=== PATIENT | male | born 1975 | race American Indian/Alaskan Native ===

== ENCOUNTER 2021-03-12 16:43 | Inpatient (IN) | payer MEDICAID ==
--- NOTE | 2021-03-12 20:50 | Event Note ---
ED Screening Note Date of service: 03/12/21 Time: 20:48 ED Screening Note: 45-year-old male patient with history of blindness presents to the emergency with complaints of progressively worsening left foot pain/swelling/drainage for several months. Patient states the left foot began exhibiting a foul odor this week. His screedman brought him to the emergency department for further evaluation however the screedman is not currently present at the time of the medical screening exam. Tachycardic in triage. General: Awake, appropriately interactive, no acute distress. Neck: Supple. Full range of motion intact. Cardiovascular: Normal peripheral perfusion. Pulmonary: No respiratory distress. Patient is speaking normally without use of accessory muscles. Skin: Purulent drainage noted to the webbed spaces of the toes on the left foot. Patient is unable to move his toes; states this is consistent with his baseline, but he is unsure why. Sensation intact. Brisk capillary refill. Neurological: No facial asymmetry. Speech is clear. Follows commands. Patient is alert and oriented. Musculoskeletal: Moves all four extremities spontaneously with normal range of motion. Psych: Cooperative. Appropriate mood and affect. Initial labs and imaging ordered; decision to obtain further diagnostic work-up deferred to additional ED providers following complete history and comprehensive physical assessment. I have greeted and performed a focused rapid initial assessment of this patient. A comprehensive ED assessment and evaluation of the patient, analysis of all test results, and completion of the medical decision-making process will be conducted by additional ED providers. This initial assessment/diagnostic orders/clinical plan/treatment(s) is/are subject to change based on patients health status, clinical progression and re-assessment. Further treatment and workup at subsequent clinical provider's discretion. Patient/guardian urged not to elope from the ED as their condition may be serious if not clinically assessed and managed.
[2021-03-12 21:25] LABS: Albumin 4.1 g/dL (3.9-5); C-Reactive Protein 3.8 mg/dL (0.00-1.30); Calcium 9.3 mg/dL (8.4-10.2)
--- NOTE | 2021-03-12 21:31 | XRay Report ---
Left foot 3 views INDICATION: Osteomyelitis FINDINGS: Diffuse osteopenia seen throughout. MTP joints appear normal. Soft tissue swelling througho ut the foot. Degenerative changes of the midfoot. IMPRESSION: No bony destructive change however there is diffuse osteopenia and soft tissue swelling. If there is high clinical concern MRI is recommended. Signer Name: Baljinder Frances MD Signed: 03/12/2021 9:26 PM Workstation Name: [id number]
[2021-03-12 21:41] LABS: Basophils % (Auto) 0.5 % (0.0-1.8); Eosinophils % (Auto) 1.3 % (0.0-4.3); Hematocrit 39.7 % (35.5-45.6); Hemoglobin 13.1 gm/dl (11.8-15.2); Lymphocytes % (Auto) 39.5 % (13.4-35.0); Mean Corpuscular HGB Conc 33 % (32-34); Mean Corpuscular Volume 92 fl (84-94); Monocytes % (Auto) 12.1 % (0.0-7.3); Platelet Count 229 K/mm3 (140-440); Red Cell Distribution Width 16.8 % (13.2-15.2)
[2021-03-12 21:42] LABS: Eosinophils # (Auto) 0.1 K/mm3 (0.0-0.4); Erythrocyte Sedimentation Rate 9 mm/Hr (0-20); Lymphocytes # (Auto) 2.8 K/mm3 (1.2-5.4); Monocytes # (Auto) 0.9 K/mm3 (0.0-0.8)
--- NOTE | 2021-03-13 03:03 | Emergency Department Report ---
ED General Adult HPI - General Chief complaint: Extremity Injury, Lower Stated complaint: RT FOOT FUNGUS PUI?: No Time Seen by Provider: 03/13/21 02:59 Source: patient Mode of arrival: Wheelchair Limitations: Other (Patient is blind) - History of Present Illness Initial comments: Patient is a 45-year-old male who presents emergency room with complaints of left foot pain and worsening fungus. Patient states been going on for couple months. Patient states he tired of the pain in his foot so he came to the hospital. Patient states his symptoms are worsening. Patient denies fever and chills. Patient denies chest pain or shortness of breath. Patient states she is not sure what it looks like because he is blind. Patient denies recent travel. Patient denies recent international travel. Patient denies exposure to the novel coronavirus. Patient denies sick contacts. Patient denies fever and chills. Patient denies cough. Patient denies diarrhea. Patient denies coming in contact with anybody with symptoms of the novel coronavirus. Patient has a history of decreased mobility and use of a wheelchair, blindness, lower extremity contractures -: Sudden Severity scale (0 -10): 4 Quality: aching Consistency: constant Improves with: rest Worsens with: movement, other (Palpation) Associated Symptoms: denies other symptoms Treatments Prior to Arrival: none - Related Data Home Medications Medication Instructions Recorded Confirmed Last Taken FLUoxetine HCL [PROzac] 40 mg PO QDAY 03/13/21 03/13/21 Unknown Fenofibrate 160 mg PO DAILY 03/13/21 03/13/21 Unknown Oxybutynin Chloride [Ditropan Xl] 5 mg PO DAILY 03/13/21 03/13/21 Unknown PHENobarbitaL [Phenobarbital] 64.8 mg PO BID 03/13/21 03/13/21 Unknown dilTIAZem HCl [Diltiazem 24Hr ER 1 cap PO DAILY 03/13/21 03/13/21 Unknown (Cd)] Allergies Allergy/AdvReac Type Severity Reaction Status Date / Time No Known Allergies Allergy Verified 03/13/21 10:57 ED Review of Systems ROS: Stated complaint: RT FOOT FUNGUS Other details as noted in HPI Constitutional: denies: chills, fever Eyes: denies: eye pain, eye discharge, vision change ENT: denies: ear pain, throat pain Respiratory: denies: cough, shortness of breath, wheezing Cardiovascular: denies: chest pain, palpitations Endocrine: no symptoms reported Gastrointestinal: denies: abdominal pain, nausea, diarrhea Genitourinary: denies: urgency, dysuria Musculoskeletal: denies: back pain, joint swelling, arthralgia Skin: denies: rash, lesions Neurological: denies: headache, weakness, paresthesias Psychiatric: denies: anxiety, depression Hematological/Lymphatic: denies: easy bleeding, easy bruising ED Past Medical Hx - Past Medical History Previous Medical History?: Yes Additional medical history: Blindness, decreased mobility and wheelchair use, - Surgical History Additional Surgical History: HEAD. Patient is blind - Family History Family history: no significant - Social History Smoking Status: Never Smoker Substance Use Type: None - Medications Home Medications: Home Medications Medication Instructions Recorded Confirmed Last Taken Type FLUoxetine HCL [PROzac] 40 mg PO QDAY 03/13/21 03/13/21 Unknown History Fenofibrate 160 mg PO DAILY 03/13/21 03/13/21 Unknown History Oxybutynin Chloride [Ditropan Xl] 5 mg PO DAILY 03/13/21 03/13/21 Unknown Histo ry PHENobarbitaL [Phenobarbital] 64.8 mg PO BID 03/13/21 03/13/21 Unknown History dilTIAZem HCl [Diltiazem 24Hr ER 1 cap PO DAILY 03/13/21 03/13/21 Unknown History (Cd)] ED Physical Exam - General Limitations: Other General appearance: alert, in no apparent distress - Head Head exam: Present: atraumatic, normocephalic - ENT ENT exam: Present: mucous membranes moist - Neck Neck exam: Present: normal inspection - Respiratory Respiratory exam: Present: normal lung sounds bilaterally. Absent: respiratory distress - Cardiovascular Cardiovascular Exam: Present: regular rate, normal rhythm. Absent: systolic murmur, diastolic murmur, rubs, gallop - GI/Abdominal GI/Abdominal exam: Present: soft, normal bowel sounds - Rectal Rectal exam: Present: deferred - Extremities Exam Extremities exam: Present: tenderness (Left foot tenderness to palpation.), other (The left foot has no palpable pulse. The left foot is cold. The left foot is tender to palpation. Normal right foot and palpable pulse in the right foot. Patient's right foot is warm to touch.) - Back Exam Back exam: Present: normal inspection - Neurological Exam Neurological exam: Present: alert, oriented X3 - Psychiatric Psychiatric exam: Present: normal affect, normal mood - Skin Skin exam: Present: warm, dry, intact, normal color. Absent: rash ED Course Vital Signs 03/12/21 03/13/21 03/13/21 18:03 03:10 05:00 Temperature 98.9 F Pulse Rate 130 H 72 77 Respiratory 20 18 24 Rate Blood Pressure 126/83 153/83 Blood Pressure 153/80 [Right] O2 Sat by Pulse 95 100 98 Oximetry 03/13/21 03/13/21 03/13/21 08:00 11:00 13:00 Temperature Pulse Rate 74 73 92 H Respiratory 20 16 13 Rate Blood Pressure 151/72 127/60 139/73 Blood Pressure [Right] O2 Sat by Pulse 98 99 99 Oximetry 03/13/21 03/13/21 20:12 20:15 Temperature Pulse Rate 78 82 Respiratory 14 Rate Blood Pressure 150/72 Blood Pressure 150/77 [Right] O2 Sat by Pulse 97 Oximetry - Reevaluation(s) Reevaluation #1: Due to the patient's lower extremity contractures, the patient is not able to have a CTA. The tap and die maker technician verified that with the radiologist that the study would be inadequate. CTA was canceled and the patient will have an ultrasound in the morning. 03/13/21 04:32 Reevaluation #2: I discussed all results with patient. I discussed plan of care with patient. Patient agrees with plan of care and admission. Patient to be admitted to the hospitalist service. 03/13/21 05:33 - Consultations Consultation #1: Vascular surgery paged 03/13/21 03:02 I discussed the case with vascular surgery, Dr. Rhodes. Dr. Rhodes recommends a CTA of the lower extremity or an ultrasound in the morning.. 03/13/21 03:[address] Rhodes the inability to do a CTA with the patient and he states that the ultrasound is adequate. Dr. Rhodes states he will see the patient. 03/13/21 05:52 Consultation #2: Hospitalist consulted for admission. Hospitalist to admit patient. 03/13/21 05:52 ED Medical Decision Making - Lab Data Result diagrams: 03/12/21 20:52 03/12/21 20:52 - Radiology Data Radiology results: report reviewed DUPLEX DOPPLER LOWER EXTREMITY VEINS, LEFT INDICATION / CLINICAL INFORMATION: foot pain TECHNIQUE: Duplex doppler imaging was performed through the veins of the left lower extremity using venous compression and other maneuvers. COMPARISON: None available. FINDINGS: COMMON FEMORAL VEIN: Negative. SUPERFICIAL FEMORAL VEIN: Negative. POPLITEAL VEIN: Negative. CALF VEINS: Negative. ADDITIONAL FINDINGS: None. IMPRESSION: No sonographic evidence for DVT DUPLEX ARTERIAL DOPPLER EXAMINATION OF THE LEFT LOWER EXTREMITY INDICATION: Foot pain FINDINGS: Flow is seen throughout the arteries of the left lower extremity to the dorsalis pedis artery. Waveforms are monophasic throughout and atherosclerotic changes are seen. There appears to be a borderline significant peak systolic velocity change between the proximal and mid superficial femoral artery segments. In the proximal superficial femoral artery the peak systolic velocity is 65 cm/s which increases to 118 cm/s in the mid superficial femoral artery. While not quite doubling, this is of some concern for a significant segmental stenosis. IMPRESSION: Flow is seen to the foot but borderline hemodynamically significant stenosis is suggested in the superficial femoral artery as above. MRA or CTA may be useful. - Medical Decision Making Patient is a 45-year-old male who presents emergency room with complaints of left lower extremity pain and infection. Patient found to have decreased pulses and a temperature difference between the right and left. The left foot had no pulse and was cold. I discussed the case with vascular surgery and they recommended a CTA or an ultrasound. Due to the patient's left lower extremity contracture a CTA was unable to be done. I have made the vascular surgeon aware of this and he recommended an ultrasound be done. Ultrasound venous and arterial were ordered. Patient admitted to the hospitalist service. Patient given broad-spectrum IV antibiotics. Patient had labs done and were essentially unremarkable. Critical care time documented due to the multiple reassessments, prolonged time at the bedside, interpretation of diagnostics and labs and discussion with consultants.. - Differential Diagnosis Arterial thrombosis, peripheral artery disease, foot pain. Critical Care Time: Yes Critical care time in (mins) excluding proc time.: 35 Critical care attestation.: If time is entered above; I have spent that time in minutes in the direct care of this critically ill patient, excluding procedure time. Critical Care Time: 35 minutes ED Disposition Clinical Impression: Left foot pain, Arterial thrombosis, Gangrene of left foot, Renal insufficiency, Contracture of lower leg joint Disposition: OP ADMIT IP TO THIS HOSP Is pt being admited?: Yes Does the pt Need Aspirin: No Condition: Critical Time of Disposition: 05:33
[2021-03-13] MEDS ORDERED: ASPIRIN 325 MG TAB PO ONE (05:37)
[2021-03-13] MEDS ORDERED: CLINDAMYCIN 600 MG/50 mL 600 MG/50 ML BAG IV ONE (05:37)
--- NOTE | 2021-03-13 09:25 | Consultation ---
History of Present Illness - Reason for Consult Consult date: 03/13/21 Left leg pain - History of Present Illness Patient with a history of blindness and left leg pain who is currently a residen t in the care facility. Patient presents with atrophy of his left leg as well as contracture about the knee joint. He is nonambulatory and mobilizes with a wheelchair. His left foot demonstrates gangrenous changes to all 5 toes and his forefoot. His left foot and calf are cool subjectively. Nonpalpable pulses. He is able to move his ankle joint but not toes. Sensation to touch is intact on his foot. Medications and Allergies Allergies Allergy/AdvReac Type Severity Reaction Status Date / Time No Known Allergies Allergy Unverified 03/12/21 17:56 Review of Systems All systems: negative Exam - Constitutional Vitals: Temp Pulse Resp BP Pulse Ox 98.9 F 74 20 151/72 98 03/12/21 18:03 03/13/21 08:00 03/13/21 08:00 03/13/21 08:00 03/13/21 08:00 General appearance: Present: no acute distress - EENT ENT: hearing intact - Neck Neck: Present: normal ROM - Respiratory Respiratory effort: normal - Extremities Extremities: abnormal (Per HPI) - Abdominal General gastrointestinal: Present: deferred Male genitourinary: Present: deferred - Rectal Rectal Exam: deferred - Psychiatric Psychiatric: appropriate mood/affect, cooperative Results - Labs CBC & Chem 7: 03/12/21 20:52 03/12/21 20:52 Labs: Abnormal lab results 03/12/21 03/12/21 Range/Units 20:52 20:52 RDW 16.8 H (13.2-15.2) % Lymph % (Auto) 39.5 H (13.4-35.0) % [place] % (Auto) 12.1 H (0.0-7.3) % [place] # (Auto) 0.9 H (0.0-0.8) K/mm3 Sodium 135 L (137-145) mmol/L Carbon Dioxide 20 L (22-30) mmol/L Creatinine 1.4 H (0.8-1.3) mg/dL Glucose 110 H (75-100) mg/dL C-Reactive Protein 3.80 H (0.00-1.30) mg/dL Assessment and Plan Given patient's contractures, he was unable to get a CTA overnight. Vascular studies have been ordered. Given his nonambulatory and contracted status as well as gangrenous changes to his foot, the patient will likely require some level of amputation. We will determine if the patient will require revascularization prior to this.
--- NOTE | 2021-03-13 10:10 | Vascular Lab Report ---
DUPLEX DOPPLER LOWER EXTREMITY VEINS, LEFT INDICATION / CLINICAL INFORMATION: foot pain TECHNIQUE: Duplex doppler imaging was performed through the veins of the left lower extremity using v enous compression and other maneuvers. COMPARISON: None available. FINDINGS: COMMON FEMORAL VEIN: Negative. SUPERFICIAL FEMORAL VEIN: Negative. POPLITEAL VEIN: Negative. CALF VEINS: Negative. ADDITIONAL FINDINGS: None. IMPRESSION: No sonographic evidence for DVT DUPLEX ARTERIAL DOPPLER EXAMINATION OF THE LEFT LOWER EXTREMITY INDICATION: Foot pain FINDINGS: Flow is seen throughout the arteries of the left lower extremity to the dorsalis pedis sarahi ry. Waveforms are monophasic throughout and atherosclerotic changes are seen. There appears to be a b orderline significant peak systolic velocity change between the proximal and mid superficial femoral artery segments. In the proximal superficial femoral artery the peak systolic velocity is 65 cm/s whi ch increases to 118 cm/s in the mid superficial femoral artery. While not quite doubling, this is of some concern for a significant segmental stenosis. IMPRESSION: Flow is seen to the foot but borderline hemodynamically significant stenosis is suggested in the superficial femoral artery as above. MRA or CTA may be useful. Signer Name: Ortiz Stern MD Signed: 03/13/2021 10:06 AM Workstation Name: [id number]
--- NOTE | 2021-03-13 13:20 | Event Note ---
Date: 03/13/21 I spoke with patient's sister who is his power of contract attorney. She states that the [facility] that the [facility] currently [facility] in delayed his presentation to the hospital and evaluation of his foot. She would like to speak with case management regarding alternative care arrangements.
[2021-03-13 16:00] LABS: INR 0.97 (0.87-1.13)
[2021-03-13 16:01] LABS: Partial Thromboplastin Time 30.7 Sec. (24.2-36.6)
[2021-03-13] MEDS ORDERED: NALOXONE 0.4 MG/1 ML INJ IV PRN (18:07)
[2021-03-13] MEDS ORDERED: ONDANSETRON 4 MG/2 ML INJ IV PRN (18:07)
[2021-03-13] MEDS ORDERED: MORPHINE 2 MG/1 ML INJ IV PRN (18:07)
[2021-03-13] MEDS ORDERED: ACETAMINOPHEN 325 MG TAB PO PRN (18:07)
--- NOTE | 2021-03-13 18:18 | History and Physical Report ---
History of Present Illness Date of examination: 03/13/21 Date of admission: 03/13/21 16:15 Chief complaint: Foot pain History of present illness: 45-year-old male with a history of depression blindness, wheelchair-bound. Presents with pain in all 5 toes and foot. Patient states pain became so severe had to come to the hospital. Upon presentation the ED it was found that patient had no palpable pulses in left foot digits were necrotic appearing. Patient had contracture therefore could not perform CTA. Vascular was consulted and recommended ultrasound. Patient has arterial ultrasound to ensure adequate perfusion. Patient had a history of left SFA with severe stenosis. Will be admitted for revascularization versus amputation. Patient states pain is well controlled with current pain medications. Past History Past Medical History: hypertension, PVD. denies: acute [place], atrial fib, arrhythmia, anemia, arthritis, cancer, diabetes, ESRD, heart failure, hepatitis, HIV/AIDS, hyperthyroidism, seizures Past Surgical History: No surgical history Social history: single, other Family history: no significant family history (Lives in personal snf) Medications and Allergies Allergies Allergy/AdvReac Type Severity Reaction Status Date / Time No Known Allergies Allergy Verified 03/13/21 10:57 Home Medications Medication Instructions Recorded Confirmed Last Taken Type FLUoxetine HCL [PROzac] 40 mg PO QDAY 03/13/21 03/13/21 Unknown History Fenofibrate 160 mg PO DAILY 03/13/21 03/13/21 Unknown History Oxybutynin Chloride [Ditropan Xl] 5 mg PO DAILY 03/13/21 03/13/21 Unknown History PHENobarbitaL [Phenobarbital] 64.8 mg PO BID 03/13/21 03/13/21 Unknown History dilTIAZem HCl [Diltiazem 24Hr ER 1 cap PO DAILY 03/13/21 03/13/21 Unknown Hi story (Cd)] Active Meds: Active Medications Acetaminophen (Acetaminophen 325 Mg Tab) 650 mg PO Q4H PRN PRN Reason: Pain MILD(1-3)/Fever >100.5/HSU Diltiazem HCl (Diltiazem Cd 180 Mg Cap) mg PO DAILY MEG Sodium Chloride (Nacl 0.9% 1000 Ml) 1,000 mls @ 100 mls/hr IV DIRECT MEG Miscellaneous Medication (Fluoxetine Hcl [Prozac]) 40 mg PO QDAY MEG Miscellaneous Medication (Phenobarbital [Phenobarbital]) 64.8 mg PO BID [facility] Morphine Sulfate (Morphine 2 Mg/1 Ml Inj) 2 mg IV Q4H PRN PRN Reason: Pain, Moderate (4-6) Naloxone HCl (Naloxone 0.4 Mg/1 Ml Inj) 0.1 mg IV Q2MIN PRN PRN Reason: Res Rate </= 8 or 02 SAT < 92% Ondansetron HCl (Ondansetron 4 Mg/2 Ml Inj) 4 mg IV Q8H PRN PRN Reason: Nausea And Vomiting Sodium Chloride (Sodium Chloride 0.9% 10 Ml Flush Syringe) 10 ml IV BID MEG Sodium Chloride (Sodium Chloride 0.9% 10 Ml Flush Syringe) 10 ml IV PRN PRN PRN Reason: LINE FLUSH Review of Systems Constitutional: no weight loss, no weight gain, no sweats, no fatigue, no weakness, no malaise, no chronic pain Ears, nose, mouth and throat: other, no ear pain, no decreased hearing, no dysphagia, no neck fullness/pressure Cardiovascular: no orthopnea, no lightheadedness Respiratory: no hemoptysis, no wheezing, no pain, no respiratory infections, no other Gastrointestinal: no vomiting, no change in bowel habits, no BRBPR, no hematochezia, no heartburn, no dyspepsia/bloating Musculoskeletal: other (Foot pain described as throbbing deep ache 10 out of 10.), no neck pain, no low back pain, no redness of joints Integumentary: color changes, foot/leg ulcers, onychomycosis, no deferred Neurological: parathesias, loss of vision, no weakness, no numbness, no seizures, no tremors, no convulsions, no aphasia, no change in mentation, no sensory deficit, no burning pain Psychiatric: no memory loss, no insomnia, no hypersomnia, no suicidal ideation Endocrine: no nocturia, no deepening of the voice, no palpatations Hematologic/Lymphatic: no easy bleeding Allergic/Immunologic: no allergic rhinitis, no persistent infections, no anaphylaxis Exam - Constitutional Vitals: Temp Pulse Resp BP Pulse Ox 98.9 F 92 H 13 139/73 99 03/12/21 18:03 03/13/21 13:00 03/13/21 13:00 03/13/21 13:00 03/13/21 13:00 General appearance: Present: no acute distress, well-nourished, other (Right eye enucleation) - EENT Eyes: Present: PERRL ENT: hearing intact, clear oral mucosa, other - Neck Neck: Present: supple, normal ROM - Respiratory Respiratory effort: normal Respiratory: bilateral: CTA - Cardiovascular Heart Sounds: Present: S1 & S2. Absent: rub, click - Extremities Extremities: pulses symmetrical, No edema Extremity abnormal: other Peripheral Pulses: abnormal (Patient has left side no posterior tibial no dorsalis pedis and difficult popliteal to find. Patient has necrotic toes appearing especially fifth through fourth metatarsal phalangeal joints maintain some sensation but limited) - Abdominal General gastrointestinal: Present: soft, non-tender, non-distended, normal bowel sounds Male genitourinary: Present: normal - Integumentary Integumentary: Present: clear, warm, dry - Musculoskeletal Musculoskeletal: gait normal, strength equal bilaterally - Psychiatric Psychiatric: appropriate mood/affect, intact judgment & insight - Neurologic Neurologic: CNII-XII intact, moves all extremities Results - Labs CBC & Chem 7: 03/12/21 20:52 03/12/21 20:52 Labs: Abnormal lab results 03/12/21 03/12/21 Range/Units 20:52 20:52 RDW 16.8 H (13.2-15.2) % Lymph % (Auto) 39.5 H (13.4-35.0) % [place] % (Auto) 12.1 H (0.0-7.3) % [place] # (Auto) 0.9 H (0.0-0.8) K/mm3 Sodium 135 L (137-145) mmol/L Carbon Dioxide 20 L (22-30) mmol/L Creatinine 1.4 H (0.8-1.3) mg/dL Glucose 110 H (75-100) mg/dL C-Reactive Protein 3.80 H (0.00-1.30) mg/dL Assessment and Plan - Patient Problems (1) Hypertension Current Visit: Yes Status: Acute Plan to address problem: We will resume diltiazem. Patient has fair control blood pressure. (2) Arterial thrombosis Current Visit: Yes Status: Acute Plan to address problem: Patient persistent left SFA severe stenosis. Patient has had vascular study has ultrasound planned for a.m. Could not perform CTA secondary to contracture. Plan per vascular establish adequate arterial blood supply patient may require revascularization versus some amputation and/or both. Plan will depend on arterial Doppler findings. Supplemental care Adequate pain control (3) Left foot pain Current Visit: Yes Status: Acute Plan to address problem: Secondary to arterial thrombus.
[2021-03-13] MEDS: dilTIAZem CD 180 MG CAP PO SCH (20:15)
[2021-03-13] MEDS ORDERED: PHENOBARBITAL 64.8 MG PO SCH (22:00)
[2021-03-13] MEDS: PHENobarbital 32.4 MG TAB PO SCH (23:55)
[2021-03-14] MEDS: SODIUM CHLORIDE 0.9% 1000 ML 1,000 ML IV SCH (06:28)
--- NOTE | 2021-03-14 08:11 | Progress Note ---
Assessment and Plan - Patient Problems (1) Hypertension Current Visit: Yes Status: Acute (2) Arterial thrombosis Current Visit: Yes Status: Acute (3) Left foot pain Current Visit: Yes Status: Acute Subjective Date of service: 03/14/21 Principal diagnosis: Peripheral vascular disease, foot pain, ischemic limb Objective - Constitutional Vitals: Vital Signs - 12hr 03/13/21 03/13/21 03/13/21 20:12 20:15 20:20 Temperature Pulse Rate 78 82 83 Respiratory 14 16 Rate Blood Pressure 150/72 150/72 Blood Pressure 150/77 [Right] O2 Sat by Pulse 97 91 Oximetry 03/13/21 03/13/21 03/13/21 20:30 20:40 20:50 Temperature Pulse Rate 74 71 80 Respiratory 6 L 19 17 Rate Blood Pressure 150/72 150/72 150/72 Blood Pressure [Right] O2 Sat by Pulse 100 99 100 Oximetry 03/13/21 03/13/21 03/13/21 21:00 21:10 21:20 Temperature Pulse Rate 79 91 H 73 Respiratory 20 14 18 Rate Blood Pressure 128/62 128/62 128/62 Blood Pressure [Right] O2 Sat by Pulse 100 74 L 90 Oximetry 03/13/21 03/14/21 03/14/21 22:24 02:23 02:38 Temperature 98.2 F Pulse Rate 83 Respiratory 20 Rate Blood Pressure 124/88 135/84 135/84 Blood Pressure [Right] O2 Sat by Pulse 99 67 L 77 L Oximetry General appearance: Present: no acute distress, well-nourished - EENT Eyes: PERRL, EOM intact ENT: hearing intact, clear oral mucosa Ears: bilateral: normal - Neck Neck: supple, normal ROM - Respiratory Respiratory effort: normal Respiratory: bilateral: CTA - Breasts Breasts: normal - Cardiovascular Rhythm: regular Heart Sounds: Present: S1 & S2. Absent: gallop, rub Extremities: pulses intact, No edema, normal color, Full ROM - Gastrointestinal General gastrointestinal: Present: soft, non-tender, non-distended, normal bowel sounds - Genitourinary Male genitourinary: normal - Integumentary Integumentary: clear, warm, dry - Musculoskeletal Musculoskeletal: 1, strength equal bilaterally - Neurologic Neurologic: moves all extremities - Psychiatric Psychiatric: memory intact, appropriate mood/affect, intact judgment & insight - Labs CBC & Chem 7: 03/12/21 20:52 03/12/21 20:52
[2021-03-14] MEDS: FLUoxetine 20 MG CAP PO SCH (09:59)
[2021-03-14] MEDS ORDERED: NON-FORMULARY EACH (Fluoxetine Hcl [Prozac] 40 MG Capsule) PO SCH (10:00)
[2021-03-14] MEDS: PHENobarbital 32.4 MG TAB PO SCH ×2 (10:00→23:00)
[2021-03-14] MEDS: dilTIAZem CD 180 MG CAP PO SCH (10:00)
[2021-03-14 11:41] LABS: Basophils % (Auto) 0.7 % (0.0-1.8); Eosinophils # (Auto) 0.1 K/mm3 (0.0-0.4); Eosinophils % (Auto) 2.9 % (0.0-4.3); Hematocrit 36.6 % (35.5-45.6); Lymphocytes # (Auto) 1.8 K/mm3 (1.2-5.4); Lymphocytes % (Auto) 44.4 % (13.4-35.0); Mean Corpuscular HGB Conc 33 % (32-34); Mean Corpuscular Volume 92 fl (84-94); Monocytes # (Auto) 0.6 K/mm3 (0.0-0.8); Monocytes % (Auto) 14.6 % (0.0-7.3); Platelet Count 198 K/mm3 (140-440); Red Blood Count 3.97 M/mm3 (3.65-5.03); Red Cell Distribution Width 16.8 % (13.2-15.2)
[2021-03-14 12:15] LABS: BUN/Creatinine Ratio 16; Blood Urea Nitrogen 14 mg/dL (9-20); Calcium 9.2 mg/dL (8.4-10.2); Hemolysis Index 8
--- NOTE | 2021-03-14 13:56 | Discharge Summary ---
Providers - Providers Date of Admission: 03/13/21 16:15 Date of discharge: 03/14/21 Attending physician: KIKO HINES Vascular Primary care physician: REFUELING RAMPMAN Hospitalization Condition: Critical Pertinent studies: Arterial Doppler study show SFA l leg Hospital course: Patient was admitted for left foot pain. Evaluation with arterial Doppler patient found to have left SFA. Vascular consult was obtained Dr. Velásquez. Patient underwent thrombectomy. Successful vascular stated patient may be discharged after procedure 2 hours. Discharge after procedure follow-up with Dr. Velásquez in 2 weeks. Disposition: DC-01 TO HOME OR SELFCARE Final Discharge Diagnosis (Prints w/discharge instructions): Arterial thrombus ischemia lower extremity - Discharge Diagnoses (1) Hypertension Status: Acute Comment: Patient continues to have optimal control throughout hospital stay. (2) Arterial thrombosis Status: Acute Comment: Arterial thrombus successful thrombectomy. Stable for discharge follow-up with vascular [address] Kiko Velásquez (3) Left foot pain Status: Acute Comment: Secondary to arterial thrombus. Core Measure Documentation - Palliative Care Palliative Care/ Comfort Measures: Not Applicable - Core Measures Any of the following diagnoses?: none Exam - Constitutional Vitals: Temp Pulse Resp BP Pulse Ox 98.2 F 71 20 109/72 99 03/14/21 12:43 03/14/21 12:43 03/14/21 12:43 03/14/21 12:43 03/14/21 12:43 General appearance: Present: no acute distress, well-nourished - EENT Eyes: Present: PERRL ENT: hearing intact, clear oral mucosa - Neck Neck: Present: supple, normal ROM - Respiratory Respiratory effort: normal Respiratory: bilateral: CTA - Cardiovascular Heart Sounds: Present: S1 & S2. Absent: rub, click - Extremities Extremities: pulses symmetrical, No edema Peripheral Pulses: within normal limits - Abdominal General gastrointestinal: Present: soft, non-tender, non-distended, normal bowel sounds Male genitourinary: Present: normal - Integumentary Integumentary: Present: clear, warm, dry - Musculoskeletal Musculoskeletal: strength equal bilaterally, other (Dark area around third and fourth digits from ischemia.) - Psychiatric Psychiatric: appropriate mood/affect, intact judgment & insight - Neurologic Neurologic: CNII-XII intact, moves all extremities Plan Activity: advance as tolerated Weight Bearing Status: Non-Weight Bearing Diet: regular Follow up with: PRIMARY CARE, [Primary Care Provider] - 3-5 Days
[2021-03-14] MEDS ORDERED: HEPARIN/NS 5000 UNIT/500ML 1,000 ML IR ONE (16:21)
[2021-03-14] MEDS ORDERED: HEPARIN 10,000 UNITS/10 ML VIAL ONE (16:21)
[2021-03-14] MEDS ORDERED: SODIUM CHLORIDE 0.9% 500 ML 500 ML ONE (16:37)
[2021-03-14] MEDS: MIDAZOLAM 2 MG/2 ML INJ ONE ×3 (16:56→17:34)
[2021-03-14] MEDS: LIDOCAINE (1%) 10 MG/1 ML VIAL 20 ML MDV ONE ×2 (16:57→17:10)
[2021-03-14] MEDS: fentaNYL 100 MCG/2 ML INJ ONE ×2 (16:57→17:40)
[2021-03-14] MEDS ORDERED: LIDOCAINE (1%) 10 MG/1 ML VIAL 20 ML MDV ONE (17:08)
[2021-03-14] MEDS ORDERED: HEPARIN/NS 5000 UNIT/500ML 500 ML IR ONE (17:27)
--- NOTE | 2021-03-14 17:40 | Electrocardiograph Report ---
[facility] Test Date: 2021-03-12 Test Time: 18:08:49 Pat Name: RIKKI YI Department: Room: A378 Gender: M Rec[employer] [place] Winder: GHAZALA : 1975 Requested By: ALBERTA STEWART III Order Number: [id number] Reading MD: Vaibhav Monzon Measurements Intervals [place] Rate: 129 P: 70 MO: 145 QRS: 47 QRSD: 70 T: 49 QT: 297 QTc: 434 Interpretive Statements Sinus tachycardia Probable left atrial enlargement No previous ECG available for comparison Electronically Signed On 03-14-2021 17:40:26 EDT by Vaibhav Monzon
--- NOTE | 2021-03-14 18:08 | Operative Report ---
Operative Report Operative Report: Date of Procedure: 03/14/2021 Pre-operative Diagnosis: PVD with Left Lower Extremity Ischemia Post-operative Diagnosis: Same Procedure(s): 1. Ultrasound-Guided Access Right Common Femoral Artery 2. Ultrasound-Guided Access Left Common Femoral Artery 3. Diagnostic Aortogram (No Previous Films for Comparison) 4. Diagnostic Left Lower Extremity Angiogram (No Previous Films for Comparison) 5. Angioplasty and Stent of Right Common Iliac Artery with 8 x 59 Viabahn VBX Stent Graft 6. Angioplasty and Stent Of Left Common Iliac Artery With 8 x 59 Viabahn VBX Stent Graft and 8 x 39 Viabahn VBX Stent Graft 7. Closure of Right Femoral Arteriotomy with Pro-[place] Closure Device 8. Closure of Left Femoral Arteriotomy with 6 Qatari Angio-Seal 9. Radiologic Supervision with Interpretation 10. Monitored Moderate Sedation (Total Anesthesia Time: 63 Minutes) Surgeon: Kiko Velásquez M.D. 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 He presented with ischemic changes to his left lower extremity. An arterial duplex demonstrated monophasic flow throughout the left lower extremity. He is in need of a diagnostic angiogram with possible intervention. He was given the risk, benefits, and alternative procedures and consented to the procedure. Angiographic Findings: The diagnostic aortogram demonstrated that the aorta was ectatic without definite aneurysmal dilatation or flow-limiting stenosis. The right common mary ann ac artery was patent at its origin however there was approximately 60% stenosis in the distal artery. The left common iliac artery was occluded at its origin with reconstitution at the distal artery and a short segment. The left lower extremity angiogram revealed that the hypogastric artery and external iliac artery were patent without evidence of flow-limiting stenosis. The common femoral artery and profunda artery were patent without evidence of flow-limiting stenosis. The SFA was patent however there was approximately 50% stenosis in the short segment in the mid SFA. The popliteal artery appeared to be patent without evidence of flow-limiting stenosis. It appeared that the patient had one-vessel runoff through the peroneal artery that was patent throughout its course and feel the dorsalis pedis artery and posterior tibial artery at the ankle and appeared patent into the foot. After intervention the right and left common iliac arteries were both patent with less than 10% residual stenosis. Both stent graft were placed with the bifurcation raised into the aorta without any evidence of endoleak or flow around the proximal stent grafts. Description of Procedure: The patient was brought to the Medical Technologist Chief and laid in supine position. After a timeout was performed his bilateral groins were prepped and draped in normal sterile fashion. Ultrasound was used to identify the right common femoral artery and confirm patency. Once patency was confirmed the overlying skin and soft tissue was anesthetized with lidocaine. An 11 blade was used to make a small stab incision and then a curved hemostat was used to bluntly dissect down to the anterior surface of the right common femoral artery. A 21-gauge micropuncture needle was used with ultrasound guidance to enter the right common femoral artery and a 0.018 micropuncture wire was advanced to the artery. The needle was removed and the micropuncture sheath was placed by Seldinger technique. The dilator and wire were removed and a 0.035 Bentson wire was advanced into the aorta. The micropuncture sheath was then exchanged for 5 Qatari sheath. An Omni Flush catheter was then advanced into the aorta and after removing the Bentson wire a diagnostic aortogram was performed with the previously described findings. The diagnostic left lower extremity angiogram was performed from the aorta secondary to the occluded left common iliac artery. There was some difficulty visualizing the entire angiogram secondary to the patient's contracted left lower extremity. Given the occluded left common iliac artery the decision was made to access the left common femoral artery. Ultrasound was used to identify the left common femoral artery and confirm patency. Once patency was confirmed the overlying skin and soft tissue was anesthetized with lidocaine. An 11 blade was used to make a small stab incision and then a curved hemostat was used to bluntly dissect down to the anterior surface of the left common femoral artery. A 21-gauge micropuncture needle was then used to access the left common femoral artery under ultrasound guidance and a 0.018 micropuncture wire was advanced to the artery. The micropuncture wire was removed and a micropuncture sheath was placed by Seldinger technique. The inner dilator and wire were removed and a short 0.035 J-wire was advanced into the distal iliac artery. The micropuncture sheath was then exchanged for 5 Qatari sheath. At this point I systemically heparinized the patient with 3000 units of heparin IV. I then used a Navicross catheter and was able to traverse the occluded iliac artery without the use of a wire, which suggested that there was likely thrombus within the iliac artery. The catheter within the aorta was confirmed by angiogram. I advanced a 0.035 glide advantage wire into the aorta and then exchanged each 5 Qatari sheath for a 7 Qatari 25 cm sheath. I advanced 8 x 59 Viabahn VBX Stent Graft through each sheath and into each common iliac artery. I advanced them above the bifurcation to ensure that I was well above the occlusion of the left common iliac artery. They will simultaneously deployed an angiogram was performed revealing that I had adequately treated the stenosis within the right common iliac artery and there was less than 10% residual stenosis however I had landing the stent short of the reentry of the left common iliac artery. I advanced an 8 x 39 Viabahn VBX Stent Graft into the left common iliac artery, with some overlap into the previously placed stent graft and deployed the stent graft, sparing the hypogastric artery. This resulted in less than 10% residual stenosis within the distal left common iliac artery as well as trapping what appeared to be some thrombus along the wall of the left common iliac artery. The proximal end of the stent graft were not opposed to the aortic wall so I advanced a 12 x 20 EverCross balloon up the right common iliac artery and a 10 x 40 EverCross balloon into the left common iliac artery. I advanced the balloons approximately penitentiary across the origin of the stent and inflated them simultaneously to flowered the proximal stents. I deflated the balloons and performed a final angiogram which revealed that the stent grafts were now well opposed to the wall of the aorta. At that point I removed the balloons and used a Pro-glide closure device to close the right common femoral arteriotomy. I then used a 6 Qatari Angio-Seal to close the left femoral arteriotomy. Sterile dressings were then applied to each groin entry site and the patient was transported back to his room in stable condition.
[2021-03-15] MEDS: SODIUM CHLORIDE 0.9% 1000 ML 1,000 ML IV SCH (02:42)
--- NOTE | 2021-03-15 09:08 | Progress Note ---
Assessment and Plan Patient status post revascularization of his left leg now with improved blood flow. The patient does have baseline ischemic changes to his foot with lack of motor to his toes. He is able to move his ankle. He may ultimately require some level of amputation. We will continue to monitor to determine a potential degree of amputation. At this time, the patient is resting comfortably with no complaints. He has significant social issues at his [facility] prior to presentation at this hospital. 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 Subjective Date of service: 03/15/21 Principal diagnosis: Peripheral vascular disease, foot pain, ischemic limb Interval history: Patient with a history of left leg ischemia and common iliac artery occlusion treated yesterday with revascularization and stent graft placement. The patient's left leg feels subjectively much improved. His pedal pulses remain nonpalpable however, improved warmth compared to his presentation. Objective - Constitutional Vitals: Vital Signs - 12hr 03/14/21 03/15/21 03/15/21 22:06 04:32 07:49 Temperature 98.8 F 98.2 F Pulse Rate 88 74 Respiratory 20 20 Rate Blood Pressure 127/76 169/85 O2 Sat by Pulse 97 96 100 Oximetry General appearance: Present: no acute distress - EENT ENT: hearing intact - Neck Neck: normal ROM - Respiratory Respiratory effort: normal Extremities: abnormal - Gastrointestinal General gastrointestinal: Present: deferred - Genitourinary Male genitourinary: deferred - Musculoskeletal Musculoskeletal: left sided weakness - Psychiatric Psychiatric: cooperative - Labs CBC & Chem 7: 03/14/21 11:11 03/14/21 11:11 Labs: Abnormal lab results 03/14/21 03/14/21 03/14/21 Range/Units 11:11 11:11 22:05 WBC 4.1 L (4.5-11.0) K/mm3 RDW 16.8 H (13.2-15.2) % Lymph % (Auto) 44.4 H (13.4-35.0) % [place] % (Auto) 14.6 H (0.0-7.3) % Seg Neutrophils % 37.4 L (40.0-70.0) % Seg Neutrophils # 1.5 L (1.8-7.7) K/mm3 Sodium 136 L (137-145) mmol/L POC Glucose 128 H (70-105) mg/dL Medications & Allergies - Medications Allergies/Adverse Reactions: Allergies No Known Allergies Allergy (Verified 03/13/21 10:57) Home Medications: Home Medications Medication Instructions Recorded Confirmed Last Taken Type FLUoxetine HCL [PROzac] 40 mg PO QDAY 03/13/21 03/13/21 Unknown History Fenofibrate 160 mg PO DAILY 03/13/21 03/13/21 Unknown History Oxybutynin Chloride [Ditropan Xl] 5 mg PO DAILY 03/13/21 03/13/21 Unknown History PHENobarbitaL [Phenobarbital] 64.8 mg PO BID 03/13/21 03/13/21 Unknown History dilTIAZem HCl [Diltiazem 24Hr ER 1 cap PO DAILY 03/13/21 03/13/21 Unknown History (Cd)] Acetaminophen [Acetaminophen TAB] 650 mg PO Q4H PRN tablet 03/14/21 Unknown Rx Aspirin EC [Halfprin EC] 81 mg PO QDAY #90 tablet. 03/14/21 Unknown Rx FLUoxetine [PROzac] 40 mg PO QDAY capsule 03/14/21 Unknown Rx PHENobarbitaL [PHENobarbital] 64.8 mg PO BID tablet 03/14/21 Unknown Rx Active Medications: Generic Name Dose Route Start Last Admin Trade Name Freq PRN Reason Stop Dose Admin Acetaminophen 650 mg 03/13/21 18:07 Acetaminophen 325 Mg Tab PO Q4H PRN Pain MILD(1-3)/Fever >100.5/HSU Hydrocodone Bitart/Acetaminophen 1 each 03/14/21 18:20 Hydrocodone/Acetaminophen 5-325 Mg Tab PO Q4H PRN Pain, Moderate (4-6) Diltiazem HCl 180 mg 03/13/21 19:00 03/14/21 10:00 Diltiazem Cd 180 Mg Cap PO 180 mg DAILY MEG Administration Fluoxetine HCl 40 mg 03/14/21 10:00 03/14/21 09:59 Fluoxetine 20 Mg Cap PO 40 mg QDAY MEG Administration Sodium Chloride 1,000 mls @ 100 mls/hr 03/13/21 18:15 03/15/21 02:42 Nacl 0.9% 1000 Ml IV 100 mls/hr DIRECT MEG Administration Morphine Sulfate 2 mg 03/13/21 18:07 Morphine 2 Mg/1 Ml Inj IV Q4H PRN Pain, Moderate (4-6) Naloxone HCl 0.1 mg 03/13/21 18:07 Naloxone 0.4 Mg/1 Ml Inj IV Q2MIN PRN Res Rate </= 8 or 02 SAT < 92% Ondansetron HCl 4 mg 03/13/21 18:07 Ondansetron 4 Mg/2 Ml Inj IV Q8H PRN Nausea And Vomiting Phenobarbital 64.8 mg 03/13/21 22:00 03/14/21 23:00 Phenobarbital 32.4 Mg Tab PO 64.8 mg BID MEG Administration Sodium Chloride 10 ml 03/13/21 22:00 03/14/21 23:01 Sodium Chloride 0.9% 10 Ml Flush Syringe IV 10 ml BID MEG Administration Sodium Chloride 10 ml 03/13/21 18:07 Sodium Chloride 0.9% 10 Ml Flush Syringe IV PRN PRN LINE FLUSH
[2021-03-15] MEDS: FLUoxetine 20 MG CAP PO SCH (09:55)
[2021-03-15] MEDS: dilTIAZem CD 180 MG CAP PO SCH (09:55)
[2021-03-15] MEDS: PHENobarbital 32.4 MG TAB PO SCH ×2 (09:55→21:30)
--- NOTE | 2021-03-15 10:58 | Progress Note ---
Assessment and Plan - Patient Problems (1) Hypertension Current Visit: Yes Status: Acute Plan to address problem: We will resume diltiazem. Patient has fair control blood pressure. (2) Arterial thrombosis Current Visit: Yes Status: Acute Plan to address problem: Stable and improved flow after revascularization procedure. Patient continues to have ischemic changes left forefoot above Lisfranc's joint may require additional amputation. Can follow-up outpatient.. Now awaiting intermediate facility (3) Left foot pain Current Visit: Yes Status: Acute Plan to address problem: Secondary to arterial thrombus. Subjective Date of service: 03/15/21 Principal diagnosis: Peripheral vascular disease, foot pain, ischemic limb Interval history: Patient doing well. Denies significant pain. Status post revascularization procedure yesterday left leg. Flow has improved significantly. Social issues about care in the personal halfway. Family would like patient placed in intermediate facility. Case management aware. Objective - Constitutional Vitals: Vital Signs - 12hr 03/15/21 03/15/21 04:32 07:49 Temperature 98.2 F Pulse Rate 74 Respiratory 20 Rate Blood Pressure 169/85 O2 Sat by Pulse 96 100 Oximetry General appearance: Present: no acute distress, well-nourished - EENT Eyes: PERRL, EOM intact ENT: hearing intact, clear oral mucosa, other (Blind) Ears: bilateral: normal - Neck Neck: supple, normal ROM - Respiratory Respiratory effort: normal Respiratory: bilateral: CTA - Breasts Breasts: normal - Cardiovascular Rhythm: regular Heart Sounds: Present: S1 & S2. Absent: gallop, rub Extremities: pulses intact, No edema, normal color, Full ROM - Gastrointestinal General gastrointestinal: Present: soft, non-tender, non-distended, normal bowel sounds - Genitourinary Male genitourinary: normal - Integumentary Integumentary: clear, warm, dry - Musculoskeletal Musculoskeletal: strength equal bilaterally, other (Ischemic changes of left foot forefoot.) - Neurologic Neurologic: moves all extremities, other (Neuropathy) - Psychiatric Psychiatric: memory intact, appropriate mood/affect, intact judgment & insight - Labs CBC & Chem 7: 03/14/21 11:11 03/14/21 11:11 Labs: Abnormal lab results 03/14/21 03/14/21 03/14/21 Range/Units 11:11 11:11 22:05 WBC 4.1 L (4.5-11.0) K/mm3 RDW 16.8 H (13.2-15.2) % Lymph % (Auto) 44.4 H (13.4-35.0) % [place] % (Auto) 14.6 H (0.0-7.3) % Seg Neutrophils % 37.4 L (40.0-70.0) % Seg Neutrophils # 1.5 L (1.8-7.7) K/mm3 Sodium 136 L (137-145) mmol/L POC Glucose 128 H (70-105) mg/dL
--- NOTE | 2021-03-16 08:16 | Progress Note ---
Assessment and Plan Patient doing well following his revascularization procedure to his leg and hindfoot. His forefoot continues to have gangrenous changes extending to all 5 phalanges. Will likely require some level of amputation. Patient's family and case management and social work arranging placement following discharge. Subjective Date of service: 03/16/21 Principal diagnosis: Peripheral vascular disease, foot pain, ischemic limb Interval history: Patient with a history of peripheral vascular disease to his left leg now treated. No complaints of any pain in his left leg. Motor to his ankle but not toes. His forefoot is beginning to demarcate. Minimal amount of reperfusion edema with nonpalpable pulses although the foot is warm to the forefoot. Both groin puncture sites have clean dressings with no significant subcutaneous hematoma. Objective - Constitutional Vitals: Vital Signs - 12hr 03/15/21 03/16/21 23:56 03:50 Temperature 98.4 F 98.1 F Pulse Rate 80 75 Respiratory 18 18 Rate Blood Pressure 133/73 124/84 O2 Sat by Pulse 96 98 Oximetry General appearance: Present: no acute distress - EENT ENT: hearing intact - Neck Neck: normal ROM - Respiratory Respiratory effort: normal Extremities: abnormal Extremity abnormal: edema (Left lower leg and foot reperfusion edema) - Gastrointestinal General gastrointestinal: Present: deferred Rectal Exam: deferred - Genitourinary Male genitourinary: deferred - Psychiatric Psychiatric: cooperative - Labs CBC & Chem 7: 03/14/21 11:11 03/14/21 11:11 Labs: Abnormal lab results 03/15/21 03/15/21 03/15/21 Range/Units 11:13 16:15 21:53 POC Glucose 176 H 130 H 108 H (70-105) mg/dL Medications & Allergies - Medications Allergies/Adverse Reactions: Allergies No Known Allergies Allergy (Verified 03/13/21 10:57) Home Medications: Home Medications Medication Instructions Recorded Confirmed Last Taken Type FLUoxetine HCL [PROzac] 40 mg PO QDAY 03/13/21 03/13/21 Unknown History Fenofibrate 160 mg PO DAILY 03/13/21 03/13/21 Unknown History Oxybutynin Chloride [Ditropan Xl] 5 mg PO DAILY 03/13/21 03/13/21 Unknown History PHENobarbitaL [Phenobarbital] 64.8 mg PO BID 03/13/21 03/13/21 Unknown History dilTIAZem HCl [Diltiazem 24Hr ER 1 cap PO DAILY 03/13/21 03/13/21 Unknown History (Cd)] Acetaminophen [Acetaminophen TAB] 650 mg PO Q4H PRN tablet 03/14/21 Unknown Rx Aspirin EC [Halfprin EC] 81 mg PO QDAY #90 tablet. 03/14/21 Unknown Rx FLUoxetine [PROzac] 40 mg PO QDAY capsule 03/14/21 Unknown Rx PHENobarbitaL [PHENobarbital] 64.8 mg PO BID tablet 03/14/21 Unknown Rx Active Medications: Generic Name Dose Route Start Last Admin Trade Name Freq PRN Reason Stop Dose Admin Acetaminophen 650 mg 03/13/21 18:07 Acetaminophen 325 Mg Tab PO Q4H PRN Pain MILD(1-3)/Fever >100.5/HSU Hydrocodone Bitart/Acetaminophen 1 each 03/14/21 18:20 Hydrocodone/Acetaminophen 5-325 Mg Tab PO Q4H PRN Pain, Moderate (4-6) Diltiazem HCl 180 mg 03/13/21 19:00 03/15/21 09:55 Diltiazem Cd 180 Mg Cap PO 180 mg DAILY MEG Administration Fluoxetine HCl 40 mg 03/14/21 10:00 03/15/21 09:55 Fluoxetine 20 Mg Cap PO 40 mg QDAY MEG Administration Sodium Chloride 1,000 mls @ 100 mls/hr 03/13/21 18:15 03/15/21 02:42 Nacl 0.9% 1000 Ml IV 100 mls/hr DIRECT MEG Administration Morphine Sulfate 2 mg 03/13/21 18:07 Morphine 2 Mg/1 Ml Inj IV Q4H PRN Pain, Moderate (4-6) Naloxone HCl 0.1 mg 03/13/21 18:07 Naloxone 0.4 Mg/1 Ml Inj IV Q2MIN PRN Res Rate </= 8 or 02 SAT < 92% Ondansetron HCl 4 mg 03/13/21 18:07 Ondansetron 4 Mg/2 Ml Inj IV Q8H PRN Nausea And Vomiting Phenobarbital 64.8 mg 03/13/21 22:00 03/15/21 21:30 Phenobarbital 32.4 Mg Tab PO 64.8 mg BID MEG Administration Sodium Chloride 10 ml 03/13/21 22:00 03/15/21 21:32 Sodium Chloride 0.9% 10 Ml Flush Syringe IV 10 ml BID MEG Administration Sodium Chloride 10 ml 03/13/21 18:07 Sodium Chloride 0.9% 10 Ml Flush Syringe IV PRN PRN LINE FLUSH
[2021-03-16] MEDS: dilTIAZem CD 180 MG CAP PO SCH (10:16)
[2021-03-16] MEDS: FLUoxetine 20 MG CAP PO SCH (10:16)
[2021-03-16] MEDS: PHENobarbital 32.4 MG TAB PO SCH ×2 (10:16→21:43)
[2021-03-16] MEDS: SODIUM CHLORIDE 0.9% 1000 ML 1,000 ML IV SCH (10:21)
--- NOTE | 2021-03-16 12:24 | Progress Note ---
Assessment and Plan Assessment and plan: (1) Hypertension Current Visit: Yes Status: Acute Plan to address problem: We will resume diltiazem. Patient has fair control blood pressure. (2) Arterial thrombosis Current Visit: Yes Status: Acute Plan to address problem: Stable and improved flow after revascularization procedure. Patient continues to have ischemic changes left forefoot above Lisfranc's joint may require additional amputation. Can follow-up outpatient.. Now awaiting prison facility (3) Left foot pain Current Visit: Yes Status: Acute Plan to address problem: Secondary to arterial thrombus. 03/16: Patient doing well. Denies significant pain. Status post revascularization procedure yesterday left leg. Flow has improved significantly. Social issues about care in the personal jail. Family would like patient placed in prison facility. Case management aware. Patient was seen and evaluated by vascular surgery no further recommendation. Patient will follow with them outpatient. History Interval history: Patient seen and examined, he is unsure why he is in the hospital. According to case management awaiting placement. Hospitalist Physical - Physical exam Narrative exam: General appearance: Present: no acute distress, well-nourished - EENT Eyes: PERRL, EOM intact ENT: hearing intact, clear oral mucosa, other (Blind) Ears: bilateral: normal - Neck Neck: supple, normal ROM - Respiratory Respiratory effort: normal Respiratory: bilateral: CTA - Breasts Breasts: normal - Cardiovascular Rhythm: regular Heart Sounds: Present: S1 & S2. Absent: gallop, rub Extremities: pulses intact, No edema, normal color, Full ROM - Gastrointestinal General gastrointestinal: Present: soft, non-tender, non-distended, normal bowel sounds - Genitourinary Male genitourinary: normal - Integumentary Integumentary: See skin assessment - Musculoskeletal Musculoskeletal: strength equal bilaterally, other (Ischemic changes of left foot forefoot.) - Neurologic Neurologic: moves all extremities, other (Neuropathy) - Psychiatric Psychiatric: memory intact, appropriate mood/affect, intact judgment & insight - Constitutional Vitals: Temp Pulse Resp BP Pulse Ox 98.1 F 75 18 124/84 100 03/16/21 03:50 03/16/21 03:50 03/16/21 03:50 03/16/21 03:50 03/16/21 07:00 General appearance: Present: no acute distress Results - Labs CBC & Chem 7: 03/14/21 11:11 03/14/21 11:11 Labs: Laboratory Last Values WBC 4.1 K/mm3 (4.5-11.0) L 03/14/21 11:11 RBC 3.97 M/mm3 (3.65-5.03) 03/14/21 11:11 Hgb 12.0 gm/dl (11.8-15.2) 03/14/21 11:11 Hct 36.6 % (35.5-45.6) 03/14/21 11:11 MCV 92 fl (84-94) 03/14/21 11:11 MCH 30 pg (28-32) 03/14/21 11:11 MCHC 33 % (32-34) 03/14/21 11:11 RDW 16.8 % (13.2-15.2) H 03/14/21 11:11 Plt Count 198 K/mm3 (140-440) 03/14/21 11:11 Lymph % (Auto) 44.4 % (13.4-35.0) H 03/14/21 11:11 [place] % (Auto) 14.6 % (0.0-7.3) H 03/14/21 11:11 Eos % (Auto) 2.9 % (0.0-4.3) 03/14/21 11:11 Baso % (Auto) 0.7 % (0.0-1.8) 03/14/21 11:11 Lymph # (Auto) 1.8 K/mm3 (1.2-5.4) 03/14/21 11:11 [place] # (Auto) 0.6 K/mm3 (0.0-0.8) 03/14/21 11:11 Eos # (Auto) 0.1 K/mm3 (0.0-0.4) 03/14/21 11:11 Baso # (Auto) 0.0 K/mm3 (0.0-0.1) 03/14/21 11:11 Add Manual Diff Complete 03/12/21 20:52 Seg Neutrophils % 37.4 % (40.0-70.0) L 03/14/21 11:11 Seg Neutrophils # 1.5 K/mm3 (1.8-7.7) L 03/14/21 11:11 ESR 9 mm/Hr (0-20) 03/12/21 20:52 PT 13.4 Sec. (12.2-14.9) 03/13/21 15:33 INR 0.97 (0.87-1.13) 03/13/21 15:33 APTT 30.7 Sec. (24.2-36.6) 03/13/21 15:33 Sodium 136 mmol/L (137-145) L 03/14/21 11:11 Potassium 4.6 mmol/L (3.6-5.0) 03/14/21 11:11 Chloride 105.0 mmol/L (98-107) 03/14/21 11:11 Carbon Dioxide 25 mmol/L (22-30) 03/14/21 11:11 Anion Gap 11 mmol/L 03/14/21 11:11 BUN 14 mg/dL (9-20) 03/14/21 11:11 Creatinine 0.9 mg/dL (0.8-1.3) 03/14/21 11:11 Estimated GFR > 60 ml/min 03/14/21 11:11 BUN/Creatinine Ratio 16 % 03/14/21 11:11 Glucose 86 mg/dL (75-100) 03/14/21 11:11 POC Glucose 172 mg/dL (70-105) H 03/16/21 11:23 Calcium 9.2 mg/dL (8.4-10.2) 03/14/21 11:11 Total Bilirubin 0.20 mg/dL (0.1-1.2) 03/12/21 20:52 AST 16 units/L (5-40) 03/12/21 20:52 ALT 13 units/L (7-56) 03/12/21 20:52 Alkaline Phosphatase 49 units/L (35-129) 03/12/21 20:52 C-Reactive Protein 3.80 mg/dL (0.00-1.30) H 03/12/21 20:52 Total Protein 7.1 g/dL (6.3-8.2) 03/12/21 20:52 Albumin 4.1 g/dL (3.9-5) 03/12/21 20:52 Albumin/Globulin Ratio 1.4 % 03/12/21 20:52 Coronavirus (PCR) Negative (Negative) 03/15/21 Unknown Microbiology: Microbiology 03/12/21 Unknown Foot - Left Wound Culture - Preliminary Dias/IV: Voiding Method Urinal Active Medications - Current Medications Current Medications: Generic Name Dose Route Start Last Admin Trade Name Freq PRN Reason Stop Dose Admin Acetaminophen 650 mg 03/13/21 18:07 Acetaminophen 325 Mg Tab PO Q4H PRN Pain MILD(1-3)/Fever >100.5/HSU Hydrocodone Bitart/Acetaminophen 1 each 03/14/21 18:20 Hydrocodone/Acetaminophen 5-325 Mg Tab PO Q4H PRN Pain, Moderate (4-6) Diltiazem HCl 180 mg 03/13/21 19:00 03/16/21 10:16 Diltiazem Cd 180 Mg Cap PO 180 mg DAILY MEG Administration Fluoxetine HCl 40 mg 03/14/21 10:00 03/16/21 10:16 Fluoxetine 20 Mg Cap PO 40 mg QDAY MEG Administration Sodium Chloride 1,000 mls @ 100 mls/hr 03/13/21 18:15 03/16/21 10:21 Nacl 0.9% 1000 Ml IV 100 mls/hr DIRECT MEG Administration Morphine Sulfate 2 mg 03/13/21 18:07 Morphine 2 Mg/1 Ml Inj IV Q4H PRN Pain, Moderate (4-6) Naloxone HCl 0.1 mg 03/13/21 18:07 Naloxone 0.4 Mg/1 Ml Inj IV Q2MIN PRN Res Rate </= 8 or 02 SAT < 92% Ondansetron HCl 4 mg 03/13/21 18:07 Ondansetron 4 Mg/2 Ml Inj IV Q8H PRN Nausea And Vomiting Phenobarbital 64.8 mg 03/13/21 22:00 03/16/21 10:16 Phenobarbital 32.4 Mg Tab PO 64.8 mg BID MEG Administration Sodium Chloride 10 ml 03/13/21 22:00 03/16/21 10:16 Sodium Chloride 0.9% 10 Ml Flush Syringe IV Not Given BID MEG Sodium Chloride 10 ml 03/13/21 18:07 Sodium Chloride 0.9% 10 Ml Flush Syringe IV PRN PRN LINE FLUSH
[2021-03-17] MEDS: dilTIAZem CD 180 MG CAP PO SCH (09:33)
[2021-03-17] MEDS: PHENobarbital 32.4 MG TAB PO SCH ×2 (09:33→23:19)
[2021-03-17] MEDS: HYDROcodone/ACETAMINOPHEN 5-325 MG TAB PO PRN (09:33)
[2021-03-17] MEDS: SODIUM CHLORIDE 0.9% 1000 ML 1,000 ML IV SCH (09:43)
[2021-03-17] MEDS: FLUoxetine 20 MG CAP PO SCH (09:48)
--- NOTE | 2021-03-17 12:10 | Progress Note ---
Assessment and Plan Assessment and plan: (1) Hypertension Current Visit: Yes Status: Acute Plan to address problem: We will resume diltiazem. Patient has fair control blood pressure. (2) Arterial thrombosis Current Visit: Yes Status: Acute Plan to address problem: Stable and improved flow after revascularization procedure. Patient continues to have ischemic changes left forefoot above Lisfranc's joint may require additional amputation. Can follow-up outpatient.. Now awaiting nursing home facility (3) Left foot pain Current Visit: Yes Status: Acute Plan to address problem: Secondary to arterial thrombus. 03/16: Patient doing well. Denies significant pain. Status post revascularization procedure yesterday left leg. Flow has improved significantly. Social issues about care in the personal long-term. Family would like patient placed in nursing home facility. Case management aware. Patient was seen and evaluated by vascular surgery no further recommendation. Patient will follow with them outpatient. 03/17: Patient seen and examined also discussed with the vascular surgeon we will order arterial and venous Doppler of the left leg. Per vascular patient does have" gangrenous changes extending to all 5 phalanges. Will likely require some level of amputation. Patient's family and case management and social work arran ging placement following discharge. Groin site clean margins. No hematoma noted. Patient is moving right leg and left leg some History Interval history: Patient seen and examined, discussed with the patient once in the hospital he verbally informs me he understands and was just a bit confused yesterday. Also discussed with vascular surgeon awaiting ultrasound Doppler. Hospitalist Physical - Physical exam Narrative exam: General appearance: Present: no acute distress, well-nourished - EENT Eyes: PERRL, EOM intact ENT: hearing intact, clear oral mucosa, other (Blind) Ears: bilateral: normal - Neck Neck: supple, normal ROM - Respiratory Respiratory effort: normal Respiratory: bilateral: CTA - Breasts Breasts: normal - Cardiovascular Rhythm: regular Heart Sounds: Present: S1 & S2. Absent: gallop, rub Extremities: pulses intact, No edema, normal color, Full ROM - Gastrointestinal General gastrointestinal: Present: soft, non-tender, non-distended, normal bowel sounds - Genitourinary Male genitourinary: normal - Integumentary Integumentary: See skin assessment - Musculoskeletal Musculoskeletal: strength equal bilaterally, other (Ischemic changes of left foot forefoot.) - Neurologic Neurologic: moves all extremities, other (Neuropathy) - Psychiatric Psychiatric: memory intact, appropriate mood/affect, intact judgment & insight - Constitutional Vitals: Temp Pulse Resp BP Pulse Ox 99.2 F 19 L 18 136/82 100 03/17/21 04:47 03/17/21 10:00 03/17/21 10:00 03/17/21 09:33 03/17/21 10:00 General appearance: Present: no acute distress Results - Labs CBC & Chem 7: 03/14/21 11:11 03/14/21 11:11 Labs: Laboratory Last Values WBC 4.1 K/mm3 (4.5-11.0) L 03/14/21 11:11 RBC 3.97 M/mm3 (3.65-5.03) 03/14/21 11:11 Hgb 12.0 gm/dl (11.8-15.2) 03/14/21 11:11 Hct 36.6 % (35.5-45.6) 03/14/21 11:11 MCV 92 fl (84-94) 03/14/21 11:11 MCH 30 pg (28-32) 03/14/21 11:11 MCHC 33 % (32-34) 03/14/21 11:11 RDW 16.8 % (13.2-15.2) H 03/14/21 11:11 Plt Count 198 K/mm3 (140-440) 03/14/21 11:11 Lymph % (Auto) 44.4 % (13.4-35.0) H 03/14/21 11:11 [place] % (Auto) 14.6 % (0.0-7.3) H 03/14/21 11:11 Eos % (Auto) 2.9 % (0.0-4.3) 03/14/21 11:11 Baso % (Auto) 0.7 % (0.0-1.8) 03/14/21 11:11 Lymph # (Auto) 1.8 K/mm3 (1.2-5.4) 03/14/21 11:11 [place] # (Auto) 0.6 K/mm3 (0.0-0.8) 03/14/21 11:11 Eos # (Auto) 0.1 K/mm3 (0.0-0.4) 03/14/21 11:11 Baso # (Auto) 0.0 K/mm3 (0.0-0.1) 03/14/21 11:11 Add Manual Diff Complete 03/12/21 20:52 Seg Neutrophils % 37.4 % (40.0-70.0) L 03/14/21 11:11 Seg Neutrophils # 1.5 K/mm3 (1.8-7.7) L 03/14/21 11:11 ESR 9 mm/Hr (0-20) 03/12/21 20:52 PT 13.4 Sec. (12.2-14.9) 03/13/21 15:33 INR 0.97 (0.87-1.13) 03/13/21 15:33 APTT 30.7 Sec. (24.2-36.6) 03/13/21 15:33 Sodium 136 mmol/L (137-145) L 03/14/21 11:11 Potassium 4.6 mmol/L (3.6-5.0) 03/14/21 11:11 Chloride 105.0 mmol/L (98-107) 03/14/21 11:11 Carbon Dioxide 25 mmol/L (22-30) 03/14/21 11:11 Anion Gap 11 mmol/L 03/14/21 11:11 BUN 14 mg/dL (9-20) 03/14/21 11:11 Creatinine 0.9 mg/dL (0.8-1.3) 03/14/21 11:11 Estimated GFR > 60 ml/min 03/14/21 11:11 BUN/Creatinine Ratio 16 % 03/14/21 11:11 Glucose 86 mg/dL (75-100) 03/14/21 11:11 POC Glucose 111 mg/dL (70-105) H 03/17/21 07:50 Calcium 9.2 mg/dL (8.4-10.2) 03/14/21 11:11 Total Bilirubin 0.20 mg/dL (0.1-1.2) 03/12/21 20:52 AST 16 units/L (5-40) 03/12/21 20:52 ALT 13 units/L (7-56) 03/12/21 20:52 Alkaline Phosphatase 49 units/L (35-129) 03/12/21 20:52 C-Reactive Protein 3.80 mg/dL (0.00-1.30) H 03/12/21 20:52 Total Protein 7.1 g/dL (6.3-8.2) 03/12/21 20:52 Albumin 4.1 g/dL (3.9-5) 03/12/21 20:52 Albumin/Globulin Ratio 1.4 % 03/12/21 20:52 Coronavirus (PCR) Negative (Negative) 03/15/21 Unknown Microbiology: Microbiology 03/12/21 Unknown Foot - Left Wound Culture - Final Dias/IV: Voiding Method Urinal Active Medications - Current Medications Current Medications: Generic Name Dose Route Start Last Admin Trade Name Freq PRN Reason Stop Dose Admin Acetaminophen 650 mg 03/13/21 18:07 Acetaminophen 325 Mg Tab PO Q4H PRN Pain MILD(1-3)/Fever >100.5/HSU Hydrocodone Bitart/Acetaminophen 1 each 03/14/21 18:20 03/17/21 09:33 Hydrocodone/Acetaminophen 5-325 Mg Tab PO 1 each Q4H PRN Administration Pain, Moderate (4-6) Diltiazem HCl 180 mg 03/13/21 19:00 03/17/21 09:33 Diltiazem Cd 180 Mg Cap PO 180 mg DAILY MEG Administration Fluoxetine HCl 40 mg 03/14/21 10:00 03/17/21 09:48 Fluoxetine 20 Mg Cap PO 40 mg QDAY MEG Administration Sodium Chloride 1,000 mls @ 100 mls/hr 03/13/21 18:15 03/17/21 09:43 Nacl 0.9% 1000 Ml IV 100 mls/hr DIRECT MEG Administration Morphine Sulfate 2 mg 03/13/21 18:07 Morphine 2 Mg/1 Ml Inj IV Q4H PRN Pain, Moderate (4-6) Naloxone HCl 0.1 mg 03/13/21 18:07 Naloxone 0.4 Mg/1 Ml Inj IV Q2MIN PRN Res Rate </= 8 or 02 SAT < 92% Ondansetron HCl 4 mg 03/13/21 18:07 Ondansetron 4 Mg/2 Ml Inj IV Q8H PRN Nausea And Vomiting Phenobarbital 64.8 mg 03/13/21 22:00 03/17/21 09:33 Phenobarbital 32.4 Mg Tab PO 64.8 mg BID MEG Administration Sodium Chloride 10 ml 03/13/21 22:00 03/17/21 09:34 Sodium Chloride 0.9% 10 Ml Flush Syringe IV 10 ml BID MEG Administration Sodium Chloride 10 ml 03/13/21 18:07 Sodium Chloride 0.9% 10 Ml Flush Syringe IV PRN PRN LINE FLUSH
--- NOTE | 2021-03-17 12:43 | Progress Note ---
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 Status post revascularization. Patient has warm left forefoot. Forefoot ischemic changes has stopped progressing. No gangrene or ulcers. Patient will follow up in 2 weeks at [facility] with Dr. Velásquez. Will need case management to arrange this. Will need cardiology consult, echocardiogram, and possible Holter monitor to assess for etiology of left iliac artery occlusion. Likely embolic. Will need Eliquis anticoagulation. Plavix antiplatelet therapy for stent. Protonix for GI prophylaxis. Will need CT angiogram of the chest, abdomen, and pelvis to exclude other emb olic causes. Subjective Date of service: 03/17/21 Principal diagnosis: Peripheral vascular disease, foot pain, ischemic limb Interval history: Acute limb ischemia of the left lower extremity noted with occlusion of the left iliac artery. This was endovascularly treated with stent graft placement. Patient's left foot is warm. Nonpalpable left pedal pulses. Palpable femoral pulses. No pseudoaneurysms or hematomas of the groins. Arterial ultrasound demonstrated left distal SFA. May need treatment in future. Patient will follow up with Dr. Velásquez. At this time, no evidence of gangrene or ulcers. Ischemic changes of the left forefoot have stopped progressing and are warm. Objective - Constitutional Vitals: Vital Signs - 12hr 03/17/21 03/17/21 03/17/21 04:47 09:33 10:00 Temperature 99.2 F Pulse Rate 76 73 Pulse Rate [ 19 L Apical] Respiratory 20 18 Rate Blood Pressure 136/82 136/82 O2 Sat by Pulse 98 100 Oximetry General appearance: Present: no acute distress - EENT Eyes: EOM intact ENT: hearing intact - Respiratory Respiratory effort: normal Extremities: pulses intact (Palpable femoral pulses, nonpalpable left pedal pulses), normal temperature, normal color, abnormal (Ischemic changes of the left forefoot that are not gangrenous or not ulcerative. These changes appear stable. The foot is warm and well-perfused.) Extremity abnormal: other (Contractures of the left knee and hip) - Psychiatric Psychiatric: appropriate mood/affect, cooperative - Labs CBC & Chem 7: 03/17/21 13:49 03/17/21 13:49 Labs: Abnormal lab results 03/16/21 03/16/21 03/17/21 Range/Units 17:27 23:04 07:50 POC Glucose 123 H 184 H 111 H (70-105) mg/dL 03/17/21 Range/Units 12:12 POC Glucose 108 H (70-105) mg/dL Medications & Allergies - Medications Allergies/Adverse Reactions: Allergies No Known Allergies Allergy (Verified 03/13/21 10:57) Home Medications: Home Medications Medication Instructions Recorded Confirmed Last Taken Type FLUoxetine HCL [PROzac] 40 mg PO QDAY 03/13/21 03/13/21 Unknown History Fenofibrate 160 mg PO DAILY 03/13/21 03/13/21 Unknown History Oxybutynin Chloride [Ditropan Xl] 5 mg PO DAILY 03/13/21 03/13/21 Unknown History PHENobarbitaL [Phenobarbital] 64.8 mg PO BID 03/13/21 03/13/21 Unknown History dilTIAZem HCl [Diltiazem 24Hr ER 1 cap PO DAILY 03/13/21 03/13/21 Unknown History (Cd)] Acetaminophen [Acetaminophen TAB] 650 mg PO Q4H PRN tablet 03/14/21 Unknown Rx Aspirin EC [Halfprin EC] 81 mg PO QDAY #90 tablet. 03/14/21 Unknown Rx FLUoxetine [PROzac] 40 mg PO QDAY capsule 03/14/21 Unknown Rx PHENobarbitaL [PHENobarbital] 64.8 mg PO BID tablet 03/14/21 Unknown Rx Active Medications: Generic Name Dose Route Start Last Admin Trade Name Freq PRN Reason Stop Dose Admin Acetaminophen 650 mg 03/13/21 18:07 Acetaminophen 325 Mg Tab PO Q4H PRN Pain MILD(1-3)/Fever >100.5/HSU Hydrocodone Bitart/Acetaminophen 1 each 03/14/21 18:20 03/17/21 09:33 Hydrocodone/Acetaminophen 5-325 Mg Tab PO 1 each Q4H PRN Administration Pain, Moderate (4-6) Diltiazem HCl 180 mg 03/13/21 19:00 03/17/21 09:33 Diltiazem Cd 180 Mg Cap PO 180 mg DAILY MEG Administration Fluoxetine HCl 40 mg 03/14/21 10:00 03/17/21 09:48 Fluoxetine 20 Mg Cap PO 40 mg QDAY MEG Administration Sodium Chloride 1,000 mls @ 100 mls/hr 03/13/21 18:15 03/17/21 09:43 Nacl 0.9% 1000 Ml IV 100 mls/hr DIRECT MEG Administration Morphine Sulfate 2 mg 03/13/21 18:07 Morphine 2 Mg/1 Ml Inj IV Q4H PRN Pain, Moderate (4-6) Naloxone HCl 0.1 mg 03/13/21 18:07 Naloxone 0.4 Mg/1 Ml Inj IV Q2MIN PRN Res Rate </= 8 or 02 SAT < 92% Ondansetron HCl 4 mg 03/13/21 18:07 Ondansetron 4 Mg/2 Ml Inj IV Q8H PRN Nausea And Vomiting Phenobarbital 64.8 mg 03/13/21 22:00 03/17/21 09:33 Phenobarbital 32.4 Mg Tab PO 64.8 mg BID MEG Administration Sodium Chloride 10 ml 03/13/21 22:00 03/17/21 09:34 Sodium Chloride 0.9% 10 Ml Flush Syringe IV 10 ml BID MEG Administration Sodium Chloride 10 ml 03/13/21 18:07 Sodium Chloride 0.9% 10 Ml Flush Syringe IV PRN PRN LINE FLUSH
[2021-03-17] MEDS ORDERED: CLOPIDOGREL 300 MG TAB PO ONE (13:30)
[2021-03-17] MEDS: APIXABAN 5 MG TAB PO SCH ×2 (13:37→23:19)
[2021-03-17] MEDS: PANTOPRAZOLE 40 MG TAB PO SCH (13:37)
[2021-03-17 14:25] LABS: Hematocrit 35.3 % (35.5-45.6); Hemoglobin 11.7 gm/dl (11.8-15.2); Mean Corpuscular HGB Conc 33 % (32-34); Mean Corpuscular Volume 93 fl (84-94); Platelet Count 173 K/mm3 (140-440); Red Blood Count 3.81 M/mm3 (3.65-5.03); Red Cell Distribution Width 16.4 % (13.2-15.2)
[2021-03-17 14:35] LABS: INR 1.01 (0.87-1.13)
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
--- NOTE | 2021-03-17 17:10 | Vascular Lab Report ---
DUPLEX DOPPLER LOWER EXTREMITY VEINS, LEFT INDICATION / CLINICAL INFORMATION: SWELLING. TECHNIQUE: Duplex doppler imaging was performed through the veins of the left lower extremity using venous compr ession and other maneuvers. COMPARISON: None available. FINDINGS: LEFT COMMON FEMORAL VEIN: Negative. LEFT FEMORAL VEIN: Negative. LEFT POPLITEAL VEIN: Negative. LEFT CALF VEINS: Negative. ADDITIONAL FINDINGS: None. IMPRESSION: 1. No sonographic evidence for DVT in the left lower extremity. Signer Name: Johnny Becker MD Signed: 03/17/2021 5:05 PM Workstation Name: [email or web address]
--- NOTE | 2021-03-17 17:12 | Vascular Lab Report ---
DUPLEX DOPPLER LOWER EXTREMITY ARTERIAL, LEFT INDICATION / CLINICAL INFORMATION: PAD. Leg pain TECHNIQUE: Arterial duplex examination of the left lower extremity performed using B-mode, color flow and spectr al Doppler assessment. FINDINGS: LEFT: Common Femoral Artery: PSV 98 cm/sec. Monophasic waveform. Proximal SFA: PSV 61 cm/sec. Monophasic waveform. Mid SFA: PSV 72 cm/sec. Monophasic waveform. Distal SFA: PSV 28 cm/sec. Monophasic waveform. Popliteal artery: PSV 17 cm/sec. Monophasic waveform. Posterior tibial artery: PSV 22 cm/sec. Monophasic waveform. Dorsalis Pedis Artery: PSV 19 cm/sec. Monophasic waveform. Left MICHELLE: Not performed. IMPRESSION: 1. Peripheral vascular disease with diffusely abnormal monophasic waveforms throughout the entire lef t lower extremity. No vascular occlusion. Ankle-Brachial Index (MICHELLE): - Calcified arteries > 1.4 - Normal = 0.9-1.4 - Mild PAD = 0.7-0.89 - Moderate PAD = 0.51-0.69 - Severe PAD < 0.5 Doppler Waveform: - Triphasic is normal. - Biphasic is abnormal if clear transition from triphasic signal along vascular tree. - Monophasic is abnormal. Signer Name: Johnny Becker MD Signed: 03/17/2021 5:07 PM Workstation Name: [email or web address]
--- NOTE | 2021-03-18 02:52 | Cat Scan Report ---
CTA CHEST, ABDOMEN, AND PELVIS WITH CONTRAST INDICATION / CLINICAL INFORMATION: embolism to left leg. TECHNIQUE: Axial CT images were obtained through the chest, abdomen, and pelvis before and after inje ction of 100 mL Omnipaque 350 IV contrast. 3 plane MIP and/or 3D reconstructions were produced. All C T scans at this location are performed using CT dose reduction for ALARA by means of automated exposu re control. COMPARISON: None available. FINDINGS: HEART: No significant abnormality. THORACIC AORTA: No significant abnormality. GREAT VESSELS: 75% stenosis of the proximal left subclavian artery as seen on coronal MIP image 50. PULMONARY ARTERIES: No significant abnormality. ADDITIONAL CHEST FINDINGS: No significant abnormality. ABDOMINAL AORTA: Mild atherosclerotic disease without aneurysmal dilatation or acute abnormality. RENAL ARTERIES: No significant abnormality. CELIAC ARTERY: No significant abnormality. SUPERIOR MESENTERIC ARTERY: No significant abnormality. INFERIOR MESENTERIC ARTERY: No significant abnormality. RIGHT ILIAC ARTERIES: Patent right common iliac artery stent. No stenosis or occlusion.. LEFT ILIAC ARTERIES: Patent left common iliac artery stent. Dissection of the left external iliac art little with about 75% stenosis of the distal external iliac artery. Mild 50% stenosis of the takeoff of the left internal iliac artery. 50% narrowing of the left common femoral artery. Proximal left superf icial femoral artery appears patent. ADDITIONAL ABDOMINOPELVIC FINDINGS: IVC filter in expected position. No acute process in the abdomen or pelvis. SKELETAL STRUCTURES: Advanced right hip degenerative arthrosis and posttraumatic deformity. IMPRESSION: 1. 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 2. Patent bilateral common iliac artery stent. 3. 75% stenosis of the proximal left subclavian artery. 4. IVC Filter Recommendation: IVC filters should be removed if possible when they are no longer clini luiza necessary. (1) Refer to the established IVC filter management plan; (2) If there is no establis hed plan for the patient's IVC filter, consider referral to interventional/vascular clinician on a no nemergent basis for evaluation. Signer Name: Leila Roman MD Signed: 03/18/2021 2:47 AM Workstation Name: [id number]
[2021-03-18] MEDS: PANTOPRAZOLE 40 MG TAB PO SCH (10:34)
[2021-03-18] MEDS: APIXABAN 5 MG TAB PO SCH (10:34)
[2021-03-18] MEDS: FLUoxetine 20 MG CAP PO SCH (10:34)
[2021-03-18] MEDS: PHENobarbital 32.4 MG TAB PO SCH ×2 (10:34→21:44)
[2021-03-18] MEDS: CLOPIDOGREL 75 MG TAB PO SCH (10:34)
[2021-03-18] MEDS: dilTIAZem CD 180 MG CAP PO SCH (10:35)
--- NOTE | 2021-03-18 12:45 | Progress Note ---
Assessment and Plan Assessment and plan: (1) Hypertension Current Visit: Yes Status: Acute Plan to address problem: We will resume diltiazem. Patient has fair control blood pressure. (2) Arterial thrombosis Current Visit: Yes Status: Acute Plan to address problem: Stable and improved flow after revascularization procedure. Patient continues to have ischemic changes left forefoot above Lisfranc's joint may require additional amputation. Can follow-up outpatient.. Now awaiting half-way facility (3) Left foot pain Current Visit: Yes Status: Acute Plan to address problem: Secondary to arterial thrombus. 03/16: Patient doing well. Denies significant pain. Status post revascularization procedure yesterday left leg. Flow has improved significantly. Social issues about care in the [facility] [place] [facility]. Family would like patient placed in half-way facility. Case management aware. Patient was seen and evaluated by vascular surgery no further recommendation. Patient will follow with them outpatient. 03/17: Patient seen and examined also discussed with the vascular surgeon we will order arterial and venous Doppler of the left leg. Per vascular patient does have" gangrenous changes extending to all 5 phalanges. Will likely require some level of amputation. Patient's family and case management and social work arran ging placement following discharge. Groin site clean margins. No hematoma noted. Patient is moving right leg and left leg some 03/18: Imaging studies reviewed some concern about dissection versus thrombus. Discussed with vascular they are going to be proceeding with a thrombectomy tomorrow. I also discussed with the patient and also discussed with the patient's sister. There was some confusion based on what the sister was told yesterday that the patient has HIV actually whoever gave the information was wrong the patient does not have HIV the history and physical specifically states that the patient denies having HIV. At this time Eliquis has been discontinued patient is back on heparin for this possible thrombectomy. Echocardiogram is pending cardiology input is noted. History Interval history: Patient seen and examined, discussed with the patient once in the hospital he verbally informs me he understands and was just a bit confused yesterday. Also discussed with vascular surgeon awaiting ultrasound Doppler. Hospitalist Physical - Physical exam Narrative exam: General appearance: Present: no acute distress, well-nourished - EENT Eyes: PERRL, EOM intact ENT: hearing intact, clear oral mucosa, other (Blind) Ears: bilateral: normal - Neck Neck: supple, normal ROM - Respiratory Respiratory effort: normal Respiratory: bilateral: CTA - Breasts Breasts: normal - Cardiovascular Rhythm: regular Heart Sounds: Present: S1 & S2. Absent: gallop, rub Extremities: pulses intact, No edema, normal color, Full ROM - Gastrointestinal General gastrointestinal: Present: soft, non-tender, non-distended, normal bowel sounds - Genitourinary Male genitourinary: normal - Integumentary Integumentary: See skin assessment - Musculoskeletal Musculoskeletal: strength equal bilaterally, other (Ischemic changes of left foot forefoot.) - Neurologic Neurologic: moves all extremities, other (Neuropathy) - Psychiatric Psychiatric: memory intact, appropriate mood/affect, intact judgment & insight - Constitutional Vitals: Temp Pulse Resp BP Pulse Ox 98.7 F 80 18 140/81 100 03/18/21 05:55 03/18/21 05:55 03/18/21 05:55 03/18/21 10:35 03/18/21 05:55 General appearance: Present: no acute distress Results - Labs CBC & Chem 7: 03/17/21 13:49 03/17/21 13:49 Labs: Laboratory Last Values WBC 4.5 K/mm3 (4.5-11.0) 03/17/21 13:49 RBC 3.81 M/mm3 (3.65-5.03) 03/17/21 13:49 Hgb 11.7 gm/dl (11.8-15.2) L 03/17/21 13:49 Hct 35.3 % (35.5-45.6) L 03/17/21 13:49 MCV 93 fl (84-94) 03/17/21 13:49 MCH 31 pg (28-32) 03/17/21 13:49 MCHC 33 % (32-34) 03/17/21 13:49 RDW 16.4 % (13.2-15.2) H 03/17/21 13:49 Plt Count 173 K/mm3 (140-440) 03/17/21 13:49 Lymph % (Auto) 44.4 % (13.4-35.0) H 03/14/21 11:11 [place] % (Auto) 14.6 % (0.0-7.3) H 03/14/21 11:11 Eos % (Auto) 2.9 % (0.0-4.3) 03/14/21 11:11 Baso % (Auto) 0.7 % (0.0-1.8) 03/14/21 11:11 Lymph # (Auto) 1.8 K/mm3 (1.2-5.4) 03/14/21 11:11 [place] # (Auto) 0.6 K/mm3 (0.0-0.8) 03/14/21 11:11 Eos # (Auto) 0.1 K/mm3 (0.0-0.4) 03/14/21 11:11 Baso # (Auto) 0.0 K/mm3 (0.0-0.1) 03/14/21 11:11 Add Manual Diff Complete 03/12/21 20:52 Seg Neutrophils % 37.4 % (40.0-70.0) L 03/14/21 11:11 Seg Neutrophils # 1.5 K/mm3 (1.8-7.7) L 03/14/21 11:11 ESR 9 mm/Hr (0-20) 03/12/21 20:52 PT 13.8 Sec. (12.2-14.9) 03/17/21 13:49 INR 1.01 (0.87-1.13) 03/17/21 13:49 APTT 32.0 Sec. (24.2-36.6) 03/17/21 13:49 Sodium 136 mmol/L (137-145) L 03/14/21 11:11 Potassium 4.6 mmol/L (3.6-5.0) 03/14/21 11:11 Chloride 105.0 mmol/L (98-107) 03/14/21 11:11 Carbon Dioxide 25 mmol/L (22-30) 03/14/21 11:11 Anion Gap 11 mmol/L 03/14/21 11:11 BUN 14 mg/dL (9-20) 03/14/21 11:11 Creatinine 0.8 mg/dL (0.8-1.3) 03/17/21 13:49 Estimated GFR > 60 ml/min 03/17/21 13:49 BUN/Creatinine Ratio 16 % 03/14/21 11:11 Glucose 86 mg/dL (75-100) 03/14/21 11:11 POC Glucose 124 mg/dL (70-105) H 03/18/21 11:39 Calcium 9.2 mg/dL (8.4-10.2) 03/14/21 11:11 Total Bilirubin 0.20 mg/dL (0.1-1.2) 03/12/21 20:52 AST 16 units/L (5-40) 03/12/21 20:52 ALT 13 units/L (7-56) 03/12/21 20:52 Alkaline Phosphatase 49 units/L (35-129) 03/12/21 20:52 C-Reactive Protein 3.80 mg/dL (0.00-1.30) H 03/12/21 20:52 Total Protein 7.1 g/dL (6.3-8.2) 03/12/21 20:52 Albumin 4.1 g/dL (3.9-5) 03/12/21 20:52 Albumin/Globulin Ratio 1.4 % 03/12/21 20:52 Coronavirus (PCR) Negative (Negative) 03/15/21 Unknown Dias/IV: Voiding Method Urinal Active Medications - Current Medications Current Medications: Generic Name Dose Route Start Last Admin Trade Name Freq PRN Reason Stop Dose Admin Acetaminophen 650 mg 03/13/21 18:07 Acetaminophen 325 Mg Tab PO Q4H PRN Pain MILD(1-3)/Fever >100.5/HSU Hydrocodone Bitart/Acetaminophen 1 each 03/14/21 18:20 03/17/21 09:33 Hydrocodone/Acetaminophen 5-325 Mg Tab PO 1 each Q4H PRN Administration Pain, Moderate (4-6) Clopidogrel Bisulfate 75 mg 03/18/21 10:00 03/18/21 10:34 Clopidogrel 75 Mg Tab PO 75 mg QDAY MEG Administration Diltiazem HCl 180 mg 03/13/21 19:00 03/18/21 10:35 Diltiazem Cd 180 Mg Cap PO 180 mg DAILY MEG Administration Fluoxetine HCl 40 mg 03/14/21 10:00 03/18/21 10:34 Fluoxetine 20 Mg Cap PO 40 mg QDAY MEG Administration Heparin Sodium (Porcine) 3,400 unit 03/18/21 16:00 Heparin 10,000 Units/10 Ml Vial 40 unit/kg (3400 unit) IV Q6H PRN Anti-Xa Assay<0.1 units/ml Sodium Chloride 1,000 mls @ 100 mls/hr 03/13/21 18:15 03/17/21 09:43 Nacl 0.9% 1000 Ml IV 100 mls/hr DIRECT MEG Administration Heparin Sodium/Sodium Chloride 25,000 unit in 500 mls @ 26 mls/hr 03/18/21 12:00 Heparin/ 0.45% Nacl-25,000 Unit/500 Ml IV TITR MEG Protocol 1,300 UNITS/HR Morphine Sulfate 2 mg 03/13/21 18:07 Morphine 2 Mg/1 Ml Inj IV Q4H PRN Pain, Moderate (4-6) Naloxone HCl 0.1 mg 03/13/21 18:07 Naloxone 0.4 Mg/1 Ml Inj IV Q2MIN PRN Res Rate </= 8 or 02 SAT < 92% Ondansetron HCl 4 mg 03/13/21 18:07 Ondansetron 4 Mg/2 Ml Inj IV Q8H PRN Nausea And Vomiting Pantoprazole Sodium 40 mg 03/17/21 13:00 03/18/21 10:34 Pantoprazole 40 Mg Tab PO 40 mg QDAC MEG Administration Phenobarbital 64.8 mg 03/13/21 22:00 03/18/21 10:34 Phenobarbital 32.4 Mg Tab PO 64.8 mg BID MEG Administration Sodium Chloride 10 ml 03/13/21 22:00 03/18/21 10:35 Sodium Chloride 0.9% 10 Ml Flush Syringe IV 10 ml BID MEG Administration Sodium Chloride 10 ml 03/13/21 18:07 Sodium Chloride 0.9% 10 Ml Flush Syringe IV PRN PRN LINE FLUSH
--- NOTE | 2021-03-18 12:57 | Progress Note ---
Assessment and Plan The patient had a CTA of the chest/abdomen/pelvis that demonstrated his left common iliac artery stent graft is patent however there is what appears to be a dissection just distal to the stent graft. In addition to the dissection the patient has a new embolus in the external iliac artery with diminished flow in the common femoral artery. He previously had a palpable femoral pulse after the case. He will require percutaneous intervention, from a left wrist approach to perform percutaneous mechanical thrombectomy and any additional necessary procedures to restore adequate arterial flow to the left lower extremity. I discussed this with the patient who has expressed understanding and agrees with the plan. Subjective Date of service: 03/18/21 Principal diagnosis: Peripheral vascular disease, foot pain, ischemic limb Interval history: Patient without complaints. Objective - Constitutional Vitals: Vital Signs - 12hr 03/18/21 03/18/21 05:55 10:35 Temperature 98.7 F Pulse Rate 80 Respiratory 18 Rate Blood Pressure 141/89 140/81 O2 Sat by Pulse 100 Oximetry General appearance: Present: no acute distress Extremities: pulses intact (Right femoral pulse is palpable) Extremity abnormal: pulses diminished (left femoral pulse in nonpalpable) - Gastrointestinal General gastrointestinal: Present: soft, non-tender, non-distended - Labs CBC & Chem 7: 03/17/21 13:49 03/17/21 13:49 Labs: Abnormal lab results 03/17/21 03/17/21 03/17/21 Range/Units 13:49 17:13 21:52 Hgb 11.7 L (11.8-15.2) gm/dl Hct 35.3 L (35.5-45.6) % RDW 16.4 H (13.2-15.2) % POC Glucose 109 H 123 H (70-105) mg/dL 03/18/21 Range/Units 11:39 Hgb (11.8-15.2) gm/dl Hct (35.5-45.6) % RDW (13.2-15.2) % POC Glucose 124 H (70-105) mg/dL Medications & Allergies - Medications Allergies/Adverse Reactions: Allergies No Known Allergies Allergy (Verified 03/13/21 10:57) Home Medications: Home Medications Medication Instructions Recorded Confirmed Last Taken Type FLUoxetine HCL [PROzac] 40 mg PO QDAY 03/13/21 03/13/21 Unknown History Fenofibrate 160 mg PO DAILY 03/13/21 03/13/21 Unknown History Oxybutynin Chloride [Ditropan Xl] 5 mg PO DAILY 03/13/21 03/13/21 Unknown History PHENobarbitaL [Phenobarbital] 64.8 mg PO BID 03/13/21 03/13/21 Unknown History dilTIAZem HCl [Diltiazem 24Hr ER 1 cap PO DAILY 03/13/21 03/13/21 Unknown History (Cd)] Acetaminophen [Acetaminophen TAB] 650 mg PO Q4H PRN tablet 03/14/21 Unknown Rx Aspirin EC [Halfprin EC] 81 mg PO QDAY #90 tablet. 03/14/21 Unknown Rx FLUoxetine [PROzac] 40 mg PO QDAY capsule 03/14/21 Unknown Rx PHENobarbitaL [PHENobarbital] 64.8 mg PO BID tablet 03/14/21 Unknown Rx Active Medications: Generic Name Dose Route Start Last Admin Trade Name Freq PRN Reason Stop Dose Admin Acetaminophen 650 mg 03/13/21 18:07 Acetaminophen 325 Mg Tab PO Q4H PRN Pain MILD(1-3)/Fever >100.5/HSU Hydrocodone Bitart/Acetaminophen 1 each 03/14/21 18:20 03/17/21 09:33 Hydrocodone/Acetaminophen 5-325 Mg Tab PO 1 each Q4H PRN Administration Pain, Moderate (4-6) Clopidogrel Bisulfate 75 mg 03/18/21 10:00 03/18/21 10:34 Clopidogrel 75 Mg Tab PO 75 mg QDAY MEG Administration Diltiazem HCl 180 mg 03/13/21 19:00 03/18/21 10:35 Diltiazem Cd 180 Mg Cap PO 180 mg DAILY MEG Administration Fluoxetine HCl 40 mg 03/14/21 10:00 03/18/21 10:34 Fluoxetine 20 Mg Cap PO 40 mg QDAY MEG Administration Heparin Sodium (Porcine) 3,400 unit 03/18/21 16:00 Heparin 10,000 Units/10 Ml Vial 40 unit/kg (3400 unit) IV Q6H PRN Anti-Xa Assay<0.1 units/ml Sodium Chloride 1,000 mls @ 100 mls/hr 03/13/21 18:15 03/17/21 09:43 Nacl 0.9% 1000 Ml IV 100 mls/hr DIRECT MEG Administration Heparin Sodium/Sodium Chloride 25,000 unit in 500 mls @ 26 mls/hr 03/18/21 12:00 Heparin/ 0.45% Nacl-25,000 Unit/500 Ml IV TITR MEG Protocol 1,300 UNITS/HR Morphine Sulfate 2 mg 03/13/21 18:07 Morphine 2 Mg/1 Ml Inj IV Q4H PRN Pain, Moderate (4-6) Naloxone HCl 0.1 mg 03/13/21 18:07 Naloxone 0.4 Mg/1 Ml Inj IV Q2MIN PRN Res Rate </= 8 or 02 SAT < 92% Ondansetron HCl 4 mg 03/13/21 18:07 Ondansetron 4 Mg/2 Ml Inj IV Q8H PRN Nausea And Vomiting Pantoprazole Sodium 40 mg 03/17/21 13:00 03/18/21 10:34 Pantoprazole 40 Mg Tab PO 40 mg QDAC MEG Administration Phenobarbital 64.8 mg 03/13/21 22:00 03/18/21 10:34 Phenobarbital 32.4 Mg Tab PO 64.8 mg BID MEG Administration Sodium Chloride 10 ml 03/13/21 22:00 03/18/21 10:35 Sodium Chloride 0.9% 10 Ml Flush Syringe IV 10 ml BID MEG Administration Sodium Chloride 10 ml 03/13/21 18:07 Sodium Chloride 0.9% 10 Ml Flush Syringe IV PRN PRN LINE FLUSH
[2021-03-18] MEDS: HEPARIN/ 0.45% NACL DRIP 25,000 UNIT/500 ML BAG IV SCH (13:08)
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
[2021-03-18 14:45] LABS: Hematocrit 34.4 % (35.5-45.6); Hemoglobin 11.5 gm/dl (11.8-15.2)
[2021-03-18 14:48] LABS: INR 1.27 (0.87-1.13)
[2021-03-18 14:49] LABS: Partial Thromboplastin Time 41.9 Sec. (24.2-36.6)
[2021-03-18] MEDS ORDERED: HEPARIN 10,000 UNITS/10 ML VIAL IV PRN (16:00)
[2021-03-19 05:42] LABS: Hematocrit 33.6 % (35.5-45.6); Hemoglobin 11.3 gm/dl (11.8-15.2); Mean Corpuscular HGB Conc 34 % (32-34); Mean Corpuscular Volume 91 fl (84-94); Platelet Count 191 K/mm3 (140-440); Red Blood Count 3.71 M/mm3 (3.65-5.03); Red Cell Distribution Width 16.2 % (13.2-15.2)
[2021-03-19 06:14] LABS: BUN/Creatinine Ratio 11; Blood Urea Nitrogen 9 mg/dL (9-20); Calcium 8.5 mg/dL (8.4-10.2); Hemolysis Index 0
[2021-03-19] MEDS: POTASSIUM CHLORIDE 10 MEQ 10 MEQ/100 ML BAG IV SCH ×3 (08:56→15:27)
[2021-03-19] MEDS: PANTOPRAZOLE 40 MG TAB PO SCH (08:56)
[2021-03-19] MEDS: dilTIAZem CD 180 MG CAP PO SCH (12:18)
--- NOTE | 2021-03-19 13:02 | Progress Note ---
Assessment and Plan Assessment and plan: (1) Hypertension Current Visit: Yes Status: Acute Plan to address problem: We will resume diltiazem. Patient has fair control blood pressure. (2) Arterial thrombosis Current Visit: Yes Status: Acute Plan to address problem: Stable and improved flow after revascularization procedure. Patient continues to have ischemic changes left forefoot above Lisfranc's joint may require additional amputation. Can follow-up outpatient.. Now awaiting correction facility (3) Left foot pain Current Visit: Yes Status: Acute Plan to address problem: Secondary to arterial thrombus. 03/16: Patient doing well. Denies significant pain. Status post revascularization procedure yesterday left leg. Flow has improved significantly. Social issues about care in the personal custodial. Family would like patient placed in correction facility. Case management aware. Patient was seen and evaluated by vascular surgery no further recommendation. Patient will follow with them outpatient. 03/17: Patient seen and examined also discussed with the vascular surgeon we will order arterial and venous Doppler of the left leg. Per vascular patient does have" gangrenous changes extending to all 5 phalanges. Will likely require some level of amputation. Patient's family and case management and social work arranging placement following discharge. Groin site clean margins. No hematoma noted. Patient is moving right leg and left leg some 03/18: Imaging studies reviewed some concern about dissection versus thrombus. Discussed with vascular they are going to be proceeding with a thrombectomy tomorrow. I also discussed with the patient and also discussed with the patient's sister. There was some confusion based on what the sister was told yesterday that the patient has HIV actually whoever gave the information was wrong the patient does not have HIV the history and physical specifically states that the patient denies having HIV. At this time Eliquis has been discontinued patient is back on heparin for this possible thrombectomy. Echocardiogram is pending cardiology input is noted. 03/19: Patient seen and examined, awaiting thrombectomy Per Vascular "considering Patient had a CTA of the chest/abdomen/pelvis that demonstrated his left common iliac artery stent graft is patent however there is what appears to be a dissection just distal to the stent graft. In addition to the dissection the pa amy has a new embolus in the external iliac artery with diminished flow in the common femoral artery. He previously had a palpable femoral pulse after the case. He will require percutaneous intervention, from a left wrist approach to perform percutaneous mechanical thrombectomy and any additional necessary procedures to restore adequate arterial flow to the left lower extremity. I discussed this with the patient who has expressed understanding and agrees with the plan." History Interval history: Patient seen and examined, AWAITING THROMBECTOMY Hospitalist Physical - Physical exam Narrative exam: General appearance: Present: no acute distress, well-nourished - EENT Eyes: PERRL, EOM intact ENT: hearing intact, clear oral mucosa, other (Blind) Ears: bilateral: normal - Neck Neck: supple, normal ROM - Respiratory Respiratory effort: normal Respiratory: bilateral: CTA - Breasts Breasts: normal - Cardiovascular Rhythm: regular Heart Sounds: Present: S1 & S2. Absent: gallop, rub Extremities: pulses intact, No edema, normal color, Full ROM Dimished pulse on the left lower ext - Gastrointestinal General gastrointestinal: Present: soft, non-tender, non-distended, normal bowel sounds - Genitourinary Male genitourinary: normal - Integumentary Integumentary: See skin assessment - Musculoskeletal Musculoskeletal: strength equal bilaterally, other (Ischemic changes of left foot forefoot.) - Neurologic Neurologic: moves all extremities, other (Neuropathy) - Psychiatric Psychiatric: memory intact, appropriate mood/affect, intact judgment & insight - Constitutional Vitals: Temp Pulse Resp BP Pulse Ox 98.2 F 72 18 145/73 97 03/19/21 05:29 03/19/21 05:29 03/19/21 05:29 03/19/21 05:29 03/19/21 05:29 General appearance: Present: no acute distress Results - Labs CBC & Chem 7: 03/19/21 05:17 03/19/21 05:17 Labs: Laboratory Last Values WBC 4.7 K/mm3 (4.5-11.0) 03/19/21 05:17 RBC 3.71 M/mm3 (3.65-5.03) 03/19/21 05:17 Hgb 11.3 gm/dl (11.8-15.2) L 03/19/21 05:17 Hct 33.6 % (35.5-45.6) L 03/19/21 05:17 MCV 91 fl (84-94) 03/19/21 05:17 MCH 30 pg (28-32) 03/19/21 05:17 MCHC 34 % (32-34) 03/19/21 05:17 RDW 16.2 % (13.2-15.2) H 03/19/21 05:17 Plt Count 191 K/mm3 (140-440) 03/19/21 05:17 Lymph % (Auto) 44.4 % (13.4-35.0) H 03/14/21 11:11 Chambers % (Auto) 14.6 % (0.0-7.3) H 03/14/21 11:11 Eos % (Auto) 2.9 % (0.0-4.3) 03/14/21 11:11 Baso % (Auto) 0.7 % (0.0-1.8) 03/14/21 11:11 Lymph # (Auto) 1.8 K/mm3 (1.2-5.4) 03/14/21 11:11 Chambers # (Auto) 0.6 K/mm3 (0.0-0.8) 03/14/21 11:11 Eos # (Auto) 0.1 K/mm3 (0.0-0.4) 03/14/21 11:11 Baso # (Auto) 0.0 K/mm3 (0.0-0.1) 03/14/21 11:11 Add Manual Diff Complete 03/12/21 20:52 Seg Neutrophils % 37.4 % (40.0-70.0) L 03/14/21 11:11 Seg Neutrophils # 1.5 K/mm3 (1.8-7.7) L 03/14/21 11:11 ESR 9 mm/Hr (0-20) 03/12/21 20:52 PT 16.4 Sec. (12.2-14.9) H 03/18/21 13:42 INR 1.27 (0.87-1.13) H 03/18/21 13:42 APTT 41.9 Sec. (24.2-36.6) H 03/18/21 13:42 Heparin Anti-Xa Level 1.22 U.I./ml (0.3-0.7) H 03/19/21 05:17 Sodium 138 mmol/L (137-145) 03/19/21 05:17 Potassium 3.2 mmol/L (3.6-5.0) L D 03/19/21 05:17 Chloride 102.2 mmol/L (98-107) 03/19/21 05:17 Carbon Dioxide 25 mmol/L (22-30) 03/19/21 05:17 Anion Gap 14 mmol/L 03/19/21 05:17 BUN 9 mg/dL (9-20) 03/19/21 05:17 Creatinine 0.8 mg/dL (0.8-1.3) 03/19/21 05:17 Estimated GFR > 60 ml/min 03/19/21 05:17 BUN/Creatinine Ratio 11 % 03/19/21 05:17 Glucose 85 mg/dL (75-100) 03/19/21 05:17 POC Glucose 81 mg/dL (70-105) 03/19/21 11:45 Calcium 8.5 mg/dL (8.4-10.2) 03/19/21 05:17 Total Bilirubin 0.20 mg/dL (0.1-1.2) 03/12/21 20:52 AST 16 units/L (5-40) 03/12/21 20:52 ALT 13 units/L (7-56) 03/12/21 20:52 Alkaline Phosphatase 49 units/L (35-129) 03/12/21 20:52 C-Reactive Protein 3.80 mg/dL (0.00-1.30) H 03/12/21 20:52 Total Protein 7.1 g/dL (6.3-8.2) 03/12/21 20:52 Albumin 4.1 g/dL (3.9-5) 03/12/21 20:52 Albumin/Globulin Ratio 1.4 % 03/12/21 20:52 Coronavirus (PCR) Negative (Negative) 03/15/21 Unknown Dias/IV: Voiding Method Urinal Active Medications - Current Medications Current Medications: Generic Name Dose Route Start Last Admin Trade Name Freq PRN Reason Stop Dose Admin Acetaminophen 650 mg 03/13/21 18:07 Acetaminophen 325 Mg Tab PO Q4H PRN Pain MILD(1-3)/Fever >100.5/HSU Hydrocodone Bitart/Acetaminophen 1 each 03/14/21 18:20 03/17/21 09:33 Hydrocodone/Acetaminophen 5-325 Mg Tab PO 1 each Q4H PRN Administration Pain, Moderate (4-6) Clopidogrel Bisulfate 75 mg 03/18/21 10:00 03/18/21 10:34 Clopidogrel 75 Mg Tab PO 75 mg QDAY MEG Administration Diltiazem HCl 180 mg 03/13/21 19:00 03/19/21 12:18 Diltiazem Cd 180 Mg Cap PO Not Given DAILY MEG Fluoxetine HCl 40 mg 03/14/21 10:00 03/18/21 10:34 Fluoxetine 20 Mg Cap PO 40 mg QDAY MEG Administration Heparin Sodium (Porcine) 3,400 unit 03/18/21 16:00 Heparin 10,000 Units/10 Ml Vial 40 unit/kg (3400 unit) IV Q6H PRN Anti-Xa Assay<0.1 units/ml Sodium Chloride 1,000 mls @ 100 mls/hr 03/13/21 18:15 03/17/21 09:43 Nacl 0.9% 1000 Ml IV 100 mls/hr DIRECT MEG Administration Heparin Sodium/Sodium Chloride 25,000 unit in 500 mls @ 26 mls/hr 03/18/21 12:00 03/19/21 09:16 Heparin/ 0.45% Nacl-25,000 Unit/500 Ml IV 1,150 units/hr TITR MEG 23 mls/hr Titration Protocol 1,300 UNITS/HR Morphine Sulfate 2 mg 03/13/21 18:07 Morphine 2 Mg/1 Ml Inj IV Q4H PRN Pain, Moderate (4-6) Naloxone HCl 0.1 mg 03/13/21 18:07 Naloxone 0.4 Mg/1 Ml Inj IV Q2MIN PRN Res Rate </= 8 or 02 SAT < 92% Ondansetron HCl 4 mg 03/13/21 18:07 Ondansetron 4 Mg/2 Ml Inj IV Q8H PRN Nausea And Vomiting Pantoprazole Sodium 40 mg 03/17/21 13:00 03/19/21 08:56 Pantoprazole 40 Mg Tab PO Not Given QDAC MEG Phenobarbital 64.8 mg 03/13/21 22:00 03/18/21 21:44 Phenobarbital 32.4 Mg Tab PO 64.8 mg BID MEG Administration Sodium Chloride 10 ml 03/13/21 22:00 03/19/21 12:19 Sodium Chloride 0.9% 10 Ml Flush Syringe IV 10 ml BID MEG Administration Sodium Chloride 10 ml 03/13/21 18:07 Sodium Chloride 0.9% 10 Ml Flush Syringe IV PRN PRN LINE FLUSH
[2021-03-19] MEDS: DEXTROSE 5% IN WATER 1,000 ML IV SCH (15:29)
[2021-03-19] MEDS: CLOPIDOGREL 75 MG TAB PO SCH (15:56)
[2021-03-19] MEDS: PHENobarbital 32.4 MG TAB PO SCH (15:56)
[2021-03-19] MEDS: FLUoxetine 20 MG CAP PO SCH (15:56)
[2021-03-19] MEDS ORDERED: HEPARIN/NS 5000 UNIT/500ML 1,000 ML IR ONE (22:18)
[2021-03-19] MEDS ORDERED: LIDOCAINE (2%) 20 MG/1 ML VIAL 20 ML MDV INFILTRATI ONE (22:18)
[2021-03-19] MEDS ORDERED: VERAPAMIL 5 MG/2 ML INJ ONE (22:18)
[2021-03-19] MEDS ORDERED: HEPARIN 10,000 UNITS/10 ML VIAL ONE (22:18)
[2021-03-19] MEDS ORDERED: NITROGLYCERIN SYRINGE 3 ML ONE (22:19)
[2021-03-19] MEDS ORDERED: MIDAZOLAM 2 MG/2 ML INJ ONE (22:19)
[2021-03-19] MEDS: fentaNYL 100 MCG/2 ML INJ ONE ×2 (22:54→23:37)
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
[2021-03-20] MEDS: PHENobarbital 32.4 MG TAB PO SCH ×3 (01:58→22:16)
[2021-03-20 05:19] LABS: Hematocrit 30.5 % (35.5-45.6); Hemoglobin 10.4 gm/dl (11.8-15.2)
[2021-03-20] MEDS: HEPARIN/ 0.45% NACL DRIP 25,000 UNIT/500 ML BAG IV SCH (06:50)
[2021-03-20] MEDS: FLUoxetine 20 MG CAP PO SCH (09:41)
[2021-03-20] MEDS: PANTOPRAZOLE 40 MG TAB PO SCH (09:42)
[2021-03-20] MEDS: CLOPIDOGREL 75 MG TAB PO SCH (09:42)
[2021-03-20] MEDS: dilTIAZem CD 180 MG CAP PO SCH (09:49)
--- NOTE | 2021-03-20 10:20 | Progress Note ---
Assessment and Plan Patient with significantly improved inline blood flow to the foot. His foot is warm and well-perfused with a palpable dorsalis pedis pulse. Minimal amount of reperfusion edema. His toes remain gangrenous without conversion to wet gangrene. Subjective Date of service: 03/20/21 Principal diagnosis: Peripheral vascular disease, foot pain, ischemic limb Interval history: Patient status post revascularization x2. The patient has minimal amount of r eperfusion edema and a palpable dorsalis pedis pulse. No complaints of any pain at this time. Objective - Constitutional Vitals: Vital Signs - 12hr 03/20/21 03/20/21 03/20/21 01:23 01:24 09:49 Temperature 98.8 F Pulse Rate 71 79 77 Respiratory 18 Rate Blood Pressure 137/84 128/72 O2 Sat by Pulse 100 100 Oximetry General appearance: Present: no acute distress - EENT Eyes: EOM intact ENT: hearing intact - Neck Neck: normal ROM - Respiratory Respiratory effort: normal Extremities: abnormal - Gastrointestinal General gastrointestinal: Present: deferred Rectal Exam: deferred - Genitourinary Male genitourinary: deferred - Psychiatric Psychiatric: cooperative - Labs CBC & Chem 7: 03/20/21 04:30 03/20/21 04:30 Labs: Abnormal lab results 03/19/21 03/20/21 03/20/21 Range/Units 15:59 04:30 04:30 Hgb 10.4 L (11.8-15.2) gm/dl Hct 30.5 L (35.5-45.6) % Heparin Anti-Xa Level 0.90 H (0.3-0.7) U.I./ml Creatinine 0.7 L (0.8-1.3) mg/dL POC Glucose (70-105) mg/dL 03/20/21 Range/Units 07:57 Hgb (11.8-15.2) gm/dl Hct (35.5-45.6) % Heparin Anti-Xa Level (0.3-0.7) U.I./ml Creatinine (0.8-1.3) mg/dL POC Glucose 131 H (70-105) mg/dL Medications & Allergies - Medications Allergies/Adverse Reactions: Allergies No Known Allergies Allergy (Verified 03/13/21 10:57) Home Medications: Home Medications Medication Instructions Recorded Confirmed Last Taken Type FLUoxetine HCL [PROzac] 40 mg PO QDAY 03/13/21 03/13/21 Unknown History Fenofibrate 160 mg PO DAILY 03/13/21 03/13/21 Unknown History Oxybutynin Chloride [Ditropan Xl] 5 mg PO DAILY 03/13/21 03/13/21 Unknown History PHENobarbitaL [Phenobarbital] 64.8 mg PO BID 03/13/21 03/13/21 Unknown History dilTIAZem HCl [Diltiazem 24Hr ER 1 cap PO DAILY 03/13/21 03/13/21 Unknown History (Cd)] Acetaminophen [Acetaminophen TAB] 650 mg PO Q4H PRN tablet 03/14/21 Unknown Rx Aspirin EC [Halfprin EC] 81 mg PO QDAY #90 tablet. 03/14/21 Unknown Rx FLUoxetine [PROzac] 40 mg PO QDAY capsule 03/14/21 Unknown Rx PHENobarbitaL [PHENobarbital] 64.8 mg PO BID tablet 03/14/21 Unknown Rx Active Medications: Generic Name Dose Route Start Last Admin Trade Name Zacq PRN Reason Stop Dose Admin Acetaminophen 650 mg 03/13/21 18:07 Acetaminophen 325 Mg Tab PO Q4H PRN Pain MILD(1-3)/Fever >100.5/HSU Hydrocodone Bitart/Acetaminophen 1 each 03/14/21 18:20 03/17/21 09:33 Hydrocodone/Acetaminophen 5-325 Mg Tab PO 1 each Q4H PRN Administration Pain, Moderate (4-6) Clopidogrel Bisulfate 75 mg 03/18/21 10:00 03/20/21 09:42 Clopidogrel 75 Mg Tab PO 75 mg QDAY MEG Administration Diltiazem HCl 180 mg 03/13/21 19:00 03/20/21 09:49 Diltiazem Cd 180 Mg Cap PO 180 mg DAILY MEG Administration Fluoxetine HCl 40 mg 03/14/21 10:00 03/20/21 09:41 Fluoxetine 20 Mg Cap PO 40 mg QDAY MEG Administration Heparin Sodium (Porcine) 3,400 unit 03/18/21 16:00 Heparin 10,000 Units/10 Ml Vial 40 unit/kg (3400 unit) IV Q6H PRN Anti-Xa Assay<0.1 units/ml Sodium Chloride 1,000 mls @ 100 mls/hr 03/13/21 18:15 03/17/21 09:43 Nacl 0.9% 1000 Ml IV 100 mls/hr DIRECT MEG Administration Heparin Sodium/Sodium Chloride 25,000 unit in 500 mls @ 26 mls/hr 03/18/21 12:00 03/20/21 06:51 Heparin/ 0.45% Nacl-25,000 Unit/500 Ml IV 1,050 units/hr TITR MEG 21 mls/hr Titration Protocol 1,300 UNITS/HR Dextrose 1,000 mls @ 35 mls/hr 03/19/21 15:00 03/19/21 15:29 D5w IV 35 mls/hr DIRECT MEG Administration Morphine Sulfate 2 mg 03/13/21 18:07 Morphine 2 Mg/1 Ml Inj IV Q4H PRN Pain, Moderate (4-6) Naloxone HCl 0.1 mg 03/13/21 18:07 Naloxone 0.4 Mg/1 Ml Inj IV Q2MIN PRN Res Rate </= 8 or 02 SAT < 92% Ondansetron HCl 4 mg 03/13/21 18:07 Ondansetron 4 Mg/2 Ml Inj IV Q8H PRN Nausea And Vomiting Pantoprazole Sodium 40 mg 03/17/21 13:00 03/20/21 09:42 Pantoprazole 40 Mg Tab PO 40 mg QDAC MEG Administration Phenobarbital 64.8 mg 03/13/21 22:00 03/20/21 09:42 Phenobarbital 32.4 Mg Tab PO 64.8 mg BID MEG Administration Sodium Chloride 10 ml 03/13/21 22:00 03/20/21 09:42 Sodium Chloride 0.9% 10 Ml Flush Syringe IV 10 ml BID MEG Administration Sodium Chloride 10 ml 03/13/21 18:07 Sodium Chloride 0.9% 10 Ml Flush Syringe IV PRN PRN LINE FLUSH
--- NOTE | 2021-03-20 14:49 | Progress Note ---
Assessment and Plan Assessment and plan: (1) Hypertension Current Visit: Yes Status: Acute Plan to address problem: We will resume diltiazem. Patient has fair control blood pressure. (2) Arterial thrombosis Current Visit: Yes Status: Acute Plan to address problem: Stable and improved flow after revascularization procedure. Patient continues to have ischemic changes left forefoot above Lisfranc's joint may require additional amputation. Can follow-up outpatient.. Now awaiting intermediate facility (3) Left foot pain Current Visit: Yes Status: Acute Plan to address problem: Secondary to arterial thrombus. 03/16: Patient doing well. Denies significant pain. Status post revascularization procedure yesterday left leg. Flow has improved significantly. Social issues about [facility]. Family would like patient placed in intermediate facility. Case management aware. Patient was seen and evaluated by vascular surgery no further recommendation. Patient will follow with them outpatient. 03/17: Patient seen and examined also discussed with the vascular surgeon we will order arterial and venous Doppler of the left leg. Per vascular patient does have" gangrenous changes extending to all 5 phalanges. Will likely require some level of amputation. Patient's family and case management and social work arranging placement following discharge. Groin site clean margins. No hematoma noted. Patient is moving right leg and left leg some 03/18: Imaging studies reviewed some concern about dissection versus thrombus. Discussed with vascular they are going to be proceeding with a thrombectomy tomorrow. I also discussed with the patient and also discussed with the patient's sister. There was some confusion based on what the sister was told yesterday that the patient has HIV actually whoever gave the information was wrong the patient does not have HIV the history and physical specifically states that the patient denies having HIV. At this time Eliquis has been discontinued patient is back on heparin for this possible thrombectomy. Echocardiogram is pending cardiology input is noted. 03/19: Patient seen and examined, awaiting thrombectomy Per Vascular "considering Patient had a CTA of the chest/abdomen/pelvis that demonstrated his left common iliac artery stent graft is patent however there is what appears to be a dissection just distal to the stent graft. In addition to the dissection the pa amy has a new embolus in the external iliac artery with diminished flow in the common femoral artery. He previously had a palpable femoral pulse after the case. He will require percutaneous intervention, from a left wrist approach to perform percutaneous mechanical thrombectomy and any additional necessary procedures to restore adequate arterial flow to the left lower extremity. I discussed this with the patient who has expressed understanding and agrees with the plan." 03/20: Patient shows clinical stability. Following thrombectomy with good flow documented. Discussed with vascular we will watch 1 more day anticipate discharge in a.m. hemoglobin is stable. History Interval history: Patient seen and examined, patient underwent successful thrombectomy with good flow Hospitalist Physical - Physical exam Narrative exam: General appearance: Present: no acute distress, well-nourished - EENT Eyes: PERRL, EOM intact ENT: hearing intact, clear oral mucosa, other (Blind) Ears: bilateral: normal - Neck Neck: supple, normal ROM - Respiratory Respiratory effort: normal Respiratory: bilateral: CTA - Breasts Breasts: normal - Cardiovascular Rhythm: regular Heart Sounds: Present: S1 & S2. Absent: gallop, rub Extremities: pulses intact, No edema, normal color, Full ROM Dimished pulse on the left lower ext - Gastrointestinal General gastrointestinal: Present: soft, non-tender, non-distended, normal bowel sounds - Genitourinary Male genitourinary: normal - Integumentary Integumentary: See skin assessment - Musculoskeletal Musculoskeletal: strength equal bilaterally, other (Ischemic changes of left stephanie t forefoot.) Warmth noted, improved. - Neurologic Neurologic: moves all extremities, other (Neuropathy) - Psychiatric Psychiatric: memory intact, appropriate mood/affect, intact judgment & insight - Constitutional Vitals: Temp Pulse Resp BP Pulse Ox 98.1 F 90 20 131/84 100 03/20/21 11:15 03/20/21 11:15 03/20/21 11:15 03/20/21 11:15 03/20/21 11:15 General appearance: Present: no acute distress Results - Labs CBC & Chem 7: 03/20/21 04:30 03/20/21 04:30 Labs: Laboratory Last Values WBC 4.7 K/mm3 (4.5-11.0) 03/19/21 05:17 RBC 3.71 M/mm3 (3.65-5.03) 03/19/21 05:17 Hgb 10.4 gm/dl (11.8-15.2) L 03/20/21 04:30 Hct 30.5 % (35.5-45.6) L 03/20/21 04:30 MCV 91 fl (84-94) 03/19/21 05:17 MCH 30 pg (28-32) 03/19/21 05:17 MCHC 34 % (32-34) 03/19/21 05:17 RDW 16.2 % (13.2-15.2) H 03/19/21 05:17 Plt Count 232 K/mm3 (140-440) 03/20/21 04:30 Lymph % (Auto) 44.4 % (13.4-35.0) H 03/14/21 11:11 [place] % (Auto) 14.6 % (0.0-7.3) H 03/14/21 11:11 Eos % (Auto) 2.9 % (0.0-4.3) 03/14/21 11:11 Baso % (Auto) 0.7 % (0.0-1.8) 03/14/21 11:11 Lymph # (Auto) 1.8 K/mm3 (1.2-5.4) 03/14/21 11:11 [place] # (Auto) 0.6 K/mm3 (0.0-0.8) 03/14/21 11:11 Eos # (Auto) 0.1 K/mm3 (0.0-0.4) 03/14/21 11:11 Baso # (Auto) 0.0 K/mm3 (0.0-0.1) 03/14/21 11:11 Add Manual Diff Complete 03/12/21 20:52 Seg Neutrophils % 37.4 % (40.0-70.0) L 03/14/21 11:11 Seg Neutrophils # 1.5 K/mm3 (1.8-7.7) L 03/14/21 11:11 ESR 9 mm/Hr (0-20) 03/12/21 20:52 PT 16.4 Sec. (12.2-14.9) H 03/18/21 13:42 INR 1.27 (0.87-1.13) H 03/18/21 13:42 APTT 41.9 Sec. (24.2-36.6) H 03/18/21 13:42 Heparin Anti-Xa Level 0.33 U.I./ml (0.3-0.7) 03/20/21 04:30 Sodium 138 mmol/L (137-145) 03/19/21 05:17 Potassium 4.0 mmol/L (3.6-5.0) D 03/19/21 18:59 Chloride 102.2 mmol/L (98-107) 03/19/21 05:17 Carbon Dioxide 25 mmol/L (22-30) 03/19/21 05:17 Anion Gap 14 mmol/L 03/19/21 05:17 BUN 9 mg/dL (9-20) 03/19/21 05:17 Creatinine 0.7 mg/dL (0.8-1.3) L 03/20/21 04:30 Estimated GFR > 60 ml/min 03/20/21 04:30 BUN/Creatinine Ratio 11 % 03/19/21 05:17 Glucose 85 mg/dL (75-100) 03/19/21 05:17 POC Glucose 123 mg/dL (70-105) H 03/20/21 11:13 Calcium 8.5 mg/dL (8.4-10.2) 03/19/21 05:17 Total Bilirubin 0.20 mg/dL (0.1-1.2) 03/12/21 20:52 AST 16 units/L (5-40) 03/12/21 20:52 ALT 13 units/L (7-56) 03/12/21 20:52 Alkaline Phosphatase 49 units/L (35-129) 03/12/21 20:52 C-Reactive Protein 3.80 mg/dL (0.00-1.30) H 03/12/21 20:52 Total Protein 7.1 g/dL (6.3-8.2) 03/12/21 20:52 Albumin 4.1 g/dL (3.9-5) 03/12/21 20:52 Albumin/Globulin Ratio 1.4 % 03/12/21 20:52 Coronavirus (PCR) Negative (Negative) 03/15/21 Unknown Dias/IV: Voiding Method Urinal Active Medications - Current Medications Current Medications: Generic Name Dose Route Start Last Admin Trade Name Freq PRN Reason Stop Dose Admin Acetaminophen 650 mg 03/13/21 18:07 Acetaminophen 325 Mg Tab PO Q4H PRN Pain MILD(1-3)/Fever >100.5/HSU Hydrocodone Bitart/Acetaminophen 1 each 03/14/21 18:20 03/17/21 09:33 Hydrocodone/Acetaminophen 5-325 Mg Tab PO 1 each Q4H PRN Administration Pain, Moderate (4-6) Clopidogrel Bisulfate 75 mg 03/18/21 10:00 03/20/21 09:42 Clopidogrel 75 Mg Tab PO 75 mg QDAY MEG Administration Diltiazem HCl 180 mg 03/13/21 19:00 03/20/21 09:49 Diltiazem Cd 180 Mg Cap PO 180 mg DAILY MEG Administration Fluoxetine HCl 40 mg 03/14/21 10:00 03/20/21 09:41 Fluoxetine 20 Mg Cap PO 40 mg QDAY MEG Administration Heparin Sodium (Porcine) 3,400 unit 03/18/21 16:00 Heparin 10,000 Units/10 Ml Vial 40 unit/kg (3400 unit) IV Q6H PRN Anti-Xa Assay<0.1 units/ml Sodium Chloride 1,000 mls @ 100 mls/hr 03/13/21 18:15 03/17/21 09:43 Nacl 0.9% 1000 Ml IV 100 mls/hr DIRECT MEG Administration Heparin Sodium/Sodium Chloride 25,000 unit in 500 mls @ 26 mls/hr 03/18/21 12:00 03/20/21 06:51 Heparin/ 0.45% Nacl-25,000 Unit/500 Ml IV 1,050 units/hr TITR MEG 21 mls/hr Titration Protocol 1,300 UNITS/HR Dextrose 1,000 mls @ 35 mls/hr 03/19/21 15:00 03/19/21 15:29 D5w IV 35 mls/hr DIRECT MEG Administration Morphine Sulfate 2 mg 03/13/21 18:07 Morphine 2 Mg/1 Ml Inj IV Q4H PRN Pain, Moderate (4-6) Naloxone HCl 0.1 mg 03/13/21 18:07 Naloxone 0.4 Mg/1 Ml Inj IV Q2MIN PRN Res Rate </= 8 or 02 SAT < 92% Ondansetron HCl 4 mg 03/13/21 18:07 Ondansetron 4 Mg/2 Ml Inj IV Q8H PRN Nausea And Vomiting Pantoprazole Sodium 40 mg 03/17/21 13:00 03/20/21 09:42 Pantoprazole 40 Mg Tab PO 40 mg QDAC MEG Administration Phenobarbital 64.8 mg 03/13/21 22:00 03/20/21 09:42 Phenobarbital 32.4 Mg Tab PO 64.8 mg BID MEG Administration Sodium Chloride 10 ml 03/13/21 22:00 03/20/21 09:42 Sodium Chloride 0.9% 10 Ml Flush Syringe IV 10 ml BID MEG Administration Sodium Chloride 10 ml 03/13/21 18:07 Sodium Chloride 0.9% 10 Ml Flush Syringe IV PRN PRN LINE FLUSH Nutrition/Malnutrition Assess - Dietary Evaluation Nutrition/Malnutrition Findings: Nutrition Notes Start: 03/20/21 12:17 Freq: Status: Active Protocol: Document 03/20/21 12:17 CHRISTIAN (Rec: 03/20/21 12:18 CHRISTIAN [id number]) Nutrition Notes Need for Assessment generated from: LOS Initial or Follow up Brief Note Subjective/Other Information Screen for LOS. Pt confused. Per chart, pt eating 100% of meals. Nutrition Intervention Revisit per MD consult or patient Sign Off request:
[2021-03-20] MEDS: HYDROcodone/ACETAMINOPHEN 5-325 MG TAB PO PRN (22:16)
[2021-03-21 05:40] LABS: Hematocrit 32.2 % (35.5-45.6); Hemoglobin 10.7 gm/dl (11.8-15.2); Mean Corpuscular HGB Conc 33 % (32-34); Mean Corpuscular Volume 91 fl (84-94); Platelet Count 254 K/mm3 (140-440); Red Blood Count 3.54 M/mm3 (3.65-5.03); Red Cell Distribution Width 16.2 % (13.2-15.2)
[2021-03-21] MEDS: HEPARIN/ 0.45% NACL DRIP 25,000 UNIT/500 ML BAG IV SCH (07:22)
[2021-03-21] MEDS: PHENobarbital 32.4 MG TAB PO SCH ×2 (10:11→22:48)
[2021-03-21] MEDS: CLOPIDOGREL 75 MG TAB PO SCH (10:11)
[2021-03-21] MEDS: FLUoxetine 20 MG CAP PO SCH (10:12)
[2021-03-21] MEDS: PANTOPRAZOLE 40 MG TAB PO SCH (10:14)
[2021-03-21] MEDS: dilTIAZem CD 180 MG CAP PO SCH (10:26)
[2021-03-21] MEDS: DEXTROSE 5% IN WATER 1,000 ML IV SCH (13:04)
--- NOTE | 2021-03-21 14:39 | Discharge Summary ---
Providers - Providers Date of Admission: 03/13/21 16:15 Attending physician: ALLISON FLOREZ MD 03/17/21 12:28 Consult to Physician [CONS] Routine Comment: Consulting Provider: CIERA ZAVALA Physician Instructions: Reason For Exam: Artherial thrombus Left common illiac artery 03/21/21 14:08 Occupational Therapy Evaluate and Treat [CONS] Routine Comment: Reason For Exam: debility Physical Therapy Evaluation and Treat [CONS] Routine Comment: Reason For Exam: debilty Primary care physician: [facility] Hospitalization Reason for admission: arterail thrombosis Condition: Stable Hospital course: 45-year-old male with a history of depression blindness, wheelchair-bound. Presents with pain in all 5 toes and foot. Patient states pain became so severe had to come to the hospital. Upon presentation the ED it was found that patient had no palpable pulses in left foot digits were necrotic appearing. Patient had contracture therefore could not perform CTA. Vascular was consulted and recommended ultrasound. Patient has arterial ultrasound to ensure adequate perfusion. Patient had a history of left SFA with severe stenosis. Will be admitted for revascularization versus amputation. Patient states pain is well controlled with current pain medications. (1) Hypertension Current Visit: Yes Status: Acute Plan to address problem: We will resume diltiazem. Patient has fair control blood pressure. (2) Arterial thrombosis Current Visit: Yes Status: Acute Plan to address problem: Stable and improved flow after revascularization procedure. Patient continues to have ischemic changes left forefoot above Lisfranc's joint may require additional amputation. Can follow-up outpatient.. Now awaiting [facility] facility (3) Left foot pain Current Visit: Yes Status: Acute Plan to address problem: Secondary to arterial thrombus. 03/16: Patient doing well. Denies significant pain. Status post revascularization procedure yesterday left leg. Flow has improved significantly. Social issues about care in the [facility]. Family would like patient placed in [facility] facility. Case management aware. Patient was seen and evaluated by vascular surgery no further recommendation. Patient will follow with them outpatient. 03/17: Patient seen and examined also discussed with the vascular surgeon we will order arterial and venous Doppler of the left leg. Per vascular patient does h ave" gangrenous changes extending to all 5 phalanges. Will likely require some level of amputation. Patient's family and case management and social work arranging placement following discharge. Groin site clean margins. No hematoma noted. Patient is moving right leg and left leg some 03/18: Imaging studies reviewed some concern about dissection versus thrombus. Discussed with vascular they are going to be proceeding with a thrombectomy tomorrow. I also discussed with the patient and also discussed with the patient's sister. There was some confusion based on what the sister was told yesterday that the patient has HIV actually whoever gave the information was wrong the patient does not have HIV the history and physical specifically states that the patient denies having HIV. At this time Eliquis has been discontinued patient is back on heparin for this possible thrombectomy. Echocardiogram is pending cardiology input is noted. 03/19: Patient seen and examined, awaiting thrombectomy Per Vascular "considering Patient had a CTA of the chest/abdomen/pelvis that demonstrated his left common iliac artery stent graft is patent however there is what appears to be a dissection just distal to the stent graft. In addition to the dissection the patient has a new embolus in the external iliac artery with diminished flow in the common femoral artery. He previously had a palpable femoral pulse after the case. He will require percutaneous intervention, from a left wrist approach to perform percutaneous mechanical thrombectomy and any additional necessary procedures to restore adequate arterial flow to the left lower extremity. I discussed this with the patient who has expressed understanding and agrees with the plan." 03/20: Patient shows clinical stability. Following thrombectomy with good flow documented. Discussed with vascular we will watch 1 more day anticipate discharge in a.m. hemoglobin is stable. 03/21: Patient seen and examined today continues to show remarkable improvement awaiting for placement at this time. Patient was seen by vascular yesterday unless noted 'patient with significantly improved inline blood flow to the foot. His foot is warm and well-perfused with a palpable dorsalis pedis pulse. Minimal amount of reperfusion edema. His toes remain gangrenous without conversion to wet gangrene." I have also discussed with the patient's sister and updated her on her clinical condition findings and management Disposition: [id number] Final Discharge Diagnosis (Prints w/discharge instructions): Arterial thrombosis Time spent for discharge: 35 mins Core Measure Documentation - Palliative Care Palliative Care/ Comfort Measures: Not Applicable - Core Measures Any of the following diagnoses?: none Exam - Physical Exam Narrative exam: General appearance: Present: no acute distress, well-nourished - EENT Eyes: PERRL, EOM intact ENT: hearing intact, clear oral mucosa, other (Blind) Ears: bilateral: normal - Neck Neck: supple, normal ROM - Respiratory Respiratory effort: normal Respiratory: bilateral: CTA - Breasts Breasts: normal - Cardiovascular Rhythm: regular Heart Sounds: Present: S1 & S2. Absent: gallop, rub Extremities: pulses intact, No edema, normal color, Full ROM Dimished pulse on the left lower ext - Gastrointestinal General gastrointestinal: Present: soft, non-tender, non-distended, normal bowel sounds - Genitourinary Male genitourinary: normal - Integumentary Integumentary: See skin assessment - Musculoskeletal Musculoskeletal: strength equal bilaterally, other (Ischemic changes of left foot forefoot.) Warmth noted, improved. - Neurologic Neurologic: moves all extremities, other (Neuropathy) - Psychiatric Psychiatric: memory intact, appropriate mood/affect, intact judgment & insight - Constitutional Vitals: Temp Pulse Resp BP Pulse Ox 98.9 F 85 18 107/61 96 03/21/21 11:05 03/21/21 11:05 03/21/21 11:05 03/21/21 11:05 03/21/21 11:05 Plan Activity: advance as tolerated, fall precautions Diet: low fat Wound: per your surgeon's advice, per wound nurse instructions Special Instructions: record daily weights, record daily BP diary, record blood sugar diary Follow up with: PRIMARY CARE, [Primary Care Provider] - 3-5 Days OLGA LIDIA MARQUIS MD [Staff Physician] - 14 Days Prescriptions: Apixaban [Eliquis] 5 mg PO BID #60 tablet Apixaban [Eliquis] 5 mg PO Q12HR #60 tablet HYDROcodone/APAP 5-325 [[place] 5-325 mg TAB] 1 each PO Q4H PRN #14 tablet PRN Reason: Pain, Moderate (4-6) Clopidogrel [Plavix] 75 mg PO QDAY #30 tablet Pantoprazole [Protonix TAB] 40 mg PO QDAC #30 tablet
[2021-03-21 15:49] LABS: INR 0.92 (0.87-1.13)
[2021-03-21 15:50] LABS: Partial Thromboplastin Time 42.9 Sec. (24.2-36.6)
--- NOTE | 2021-03-21 16:36 | Progress Note ---
Assessment and Plan The patient is doing well status post revascularization of his left lower extremity. He has a palpable dorsalis pedis pulse. There was thrombus within the left external iliac artery as well as the left common femoral artery during his initial procedure. He should be discharged on Plavix 75 mg p.o. daily and Eliquis 5 mg p.o. twice daily. He should follow-up with me in the office 2 weeks after discharge. Subjective Date of service: 03/21/21 Principal diagnosis: Peripheral vascular disease, foot pain, ischemic limb Interval history: The patient has no complaints at this time. Objective - Constitutional Vitals: Vital Signs - 12hr 03/21/21 03/21/21 03/21/21 06:07 10:20 10:26 Temperature 98.7 F 98.3 F Pulse Rate 68 80 74 Respiratory 18 18 Rate Blood Pressure 127/64 109/65 112/59 O2 Sat by Pulse 99 99 Oximetry 03/21/21 11:05 Temperature 98.9 F Pulse Rate 85 Respiratory 18 Rate Blood Pressure 107/61 O2 Sat by Pulse 96 Oximetry Extremities: pulses intact (Right foot is warm and well perfused, left foot has a palpable dorsalis pedis pulse) Extremity abnormal: other (Right radial artery pulses intact) - Labs CBC & Chem 7: 03/21/21 05:08 03/21/21 14:52 Labs: Abnormal lab results 03/20/21 03/21/21 03/21/21 Range/Units 22:37 05:08 11:05 RBC 3.54 L (3.65-5.03) M/mm3 Hgb 10.7 L (11.8-15.2) gm/dl Hct 32.2 L (35.5-45.6) % RDW 16.2 H (13.2-15.2) % APTT (24.2-36.6) Sec. Creatinine (0.8-1.3) mg/dL POC Glucose 137 H 126 H (70-105) mg/dL 03/21/21 03/21/21 03/21/21 Range/Units 14:52 14:52 16:10 RBC (3.65-5.03) M/mm3 Hgb (11.8-15.2) gm/dl Hct (35.5-45.6) % RDW (13.2-15.2) % APTT 42.9 H (24.2-36.6) Sec. Creatinine 0.7 L (0.8-1.3) mg/dL POC Glucose 121 H (70-105) mg/dL Medications & Allergies - Medications Allergies/Adverse Reactions: Allergies No Known Allergies Allergy (Verified 03/13/21 10:57) Home Medications: Home Medications Medication Instructions Recorded Confirmed Last Taken Type FLUoxetine HCL [PROzac] 40 mg PO QDAY 03/13/21 03/13/21 Unknown History Fenofibrate 160 mg PO DAILY 03/13/21 03/13/21 Unknown History Oxybutynin Chloride [Ditropan Xl] 5 mg PO DAILY 03/13/21 03/13/21 Unknown History PHENobarbitaL [Phenobarbital] 64.8 mg PO BID 03/13/21 03/13/21 Unknown History dilTIAZem HCl [Diltiazem 24Hr ER 1 cap PO DAILY 03/13/21 03/13/21 Unknown History (Cd)] Acetaminophen [Acetaminophen TAB] 650 mg PO Q4H PRN tablet 03/14/21 Unknown Rx FLUoxetine [PROzac] 40 mg PO QDAY capsule 03/14/21 Unknown Rx PHENobarbitaL [PHENobarbital] 64.8 mg PO BID tablet 03/14/21 Unknown Rx Apixaban [Eliquis] 5 mg PO BID #60 tablet 03/21/21 Unknown Rx Apixaban [Eliquis] 5 mg PO Q12HR #60 tablet 03/21/21 Unknown Rx Clopidogrel [Plavix] 75 mg PO QDAY #30 tablet 03/21/21 Unknown Rx HYDROcodone/APAP 5-325 [[place] 1 each PO Q4H PRN #14 tablet 03/21/21 Unknown Rx 5-325 mg TAB] Pantoprazole [Protonix TAB] 40 mg PO QDAC #30 tablet 03/21/21 Unknown Rx Active Medications: Generic Name Dose Route Start Last Admin Trade Name Freq PRN Reason Stop Dose Admin Acetaminophen 650 mg 03/13/21 18:07 Acetaminophen 325 Mg Tab PO Q4H PRN Pain MILD(1-3)/Fever >100.5/HSU Hydrocodone Bitart/Acetaminophen 1 each 03/14/21 18:20 03/20/21 22:16 Hydrocodone/Acetaminophen 5-325 Mg Tab PO 1 each Q4H PRN Administration Pain, Moderate (4-6) Apixaban 5 mg 03/21/21 15:00 Apixaban 5 Mg Tab PO Q12HR MEG Protocol Clopidogrel Bisulfate 75 mg 03/18/21 10:00 03/21/21 10:11 Clopidogrel 75 Mg Tab PO 75 mg QDAY MEG Administration Diltiazem HCl 180 mg 03/13/21 19:00 03/21/21 10:26 Diltiazem Cd 180 Mg Cap PO 180 mg DAILY MEG Administration Fluoxetine HCl 40 mg 03/14/21 10:00 03/21/21 10:12 Fluoxetine 20 Mg Cap PO 40 mg QDAY MEG Administration Sodium Chloride 1,000 mls @ 100 mls/hr 03/13/21 18:15 03/17/21 09:43 Nacl 0.9% 1000 Ml IV 100 mls/hr DIRECT MEG Administration Dextrose 1,000 mls @ 35 mls/hr 03/19/21 15:00 03/21/21 13:04 D5w IV 35 mls/hr DIRECT MEG Administration Morphine Sulfate 2 mg 03/13/21 18:07 Morphine 2 Mg/1 Ml Inj IV Q4H PRN Pain, Moderate (4-6) Naloxone HCl 0.1 mg 03/13/21 18:07 Naloxone 0.4 Mg/1 Ml Inj IV Q2MIN PRN Res Rate </= 8 or 02 SAT < 92% Ondansetron HCl 4 mg 03/13/21 18:07 Ondansetron 4 Mg/2 Ml Inj IV Q8H PRN Nausea And Vomiting Pantoprazole Sodium 40 mg 03/17/21 13:00 03/21/21 10:14 Pantoprazole 40 Mg Tab PO 40 mg QDAC MEG Administration Phenobarbital 64.8 mg 03/13/21 22:00 03/21/21 10:11 Phenobarbital 32.4 Mg Tab PO 64.8 mg BID MEG Administration Sodium Chloride 10 ml 03/13/21 22:00 03/21/21 10:12 Sodium Chloride 0.9% 10 Ml Flush Syringe IV 10 ml BID MEG Administration Sodium Chloride 10 ml 03/13/21 18:07 Sodium Chloride 0.9% 10 Ml Flush Syringe IV PRN PRN LINE FLUSH
[2021-03-21] MEDS: APIXABAN 5 MG TAB PO SCH ×2 (17:55→22:46)
[2021-03-21] MEDS: HYDROcodone/ACETAMINOPHEN 5-325 MG TAB PO PRN (22:48)
[2021-03-22] MEDS: APIXABAN 5 MG TAB PO SCH ×2 (09:32→21:23)
[2021-03-22] MEDS: PHENobarbital 32.4 MG TAB PO SCH ×2 (09:32→21:23)
[2021-03-22] MEDS: PANTOPRAZOLE 40 MG TAB PO SCH (09:33)
[2021-03-22] MEDS: FLUoxetine 20 MG CAP PO SCH (09:34)
[2021-03-22] MEDS: CLOPIDOGREL 75 MG TAB PO SCH (09:34)
[2021-03-22] MEDS: dilTIAZem CD 180 MG CAP PO SCH (09:38)
--- NOTE | 2021-03-22 11:56 | Progress Note ---
Assessment and Plan Assessment and plan: (1) Hypertension Current Visit: Yes Status: Acute Plan to address problem: We will resume diltiazem. Patient has fair control blood pressure. (2) Arterial thrombosis Current Visit: Yes Status: Acute Plan to address problem: Stable and improved flow after revascularization procedure. Patient continues to have ischemic changes left forefoot above Lisfranc's joint may require additional amputation. Can follow-up outpatient.. Now awaiting care home facility (3) Left foot pain Current Visit: Yes Status: Acute Plan to address problem: Secondary to arterial thrombus. 03/16: Patient doing well. Denies significant pain. Status post revascularization procedure yesterday left leg. Flow has improved significantly. Social issues about care in the personal fdc. Family would like patient placed in care home facility. Case management aware. Patient was seen and evaluated by vascular surgery no further recommendation. Patient will follow with them outpatient. 03/17: Patient seen and examined also discussed with the vascular surgeon we will order arterial and venous Doppler of the left leg. Per vascular patient does have" gangrenous changes extending to all 5 phalanges. Will likely require some level of amputation. Patient's family and case management and social work arranging placement following discharge. Groin site clean margins. No hematoma noted. Patient is moving right leg and left leg some 03/18: Imaging studies reviewed some concern about dissection versus thrombus. Discussed with vascular they are going to be proceeding with a thrombectomy tomorrow. I also discussed with the patient and also discussed with the patient's sister. There was some confusion based on what the sister was told yesterday that the patient has HIV actually whoever gave the information was wrong the patient does not have HIV the history and physical specifically states that the patient denies having HIV. At this time Eliquis has been discontinued patient is back on heparin for this possible thrombectomy. Echocardiogram is pending cardiology input is noted. 03/19: Patient seen and examined, awaiting thrombectomy Per Vascular "considering Patient had a CTA of the chest/abdomen/pelvis that demonstrated his left common iliac artery stent graft is patent however there is what appears to be a dissection just distal to the stent graft. In addition to the dissection the pa amy has a new embolus in the external iliac artery with diminished flow in the common femoral artery. He previously had a palpable femoral pulse after the case. He will require percutaneous intervention, from a left wrist approach to perform percutaneous mechanical thrombectomy and any additional necessary procedures to restore adequate arterial flow to the left lower extremity. I discussed this with the patient who has expressed understanding and agrees with the plan." 03/20: Patient shows clinical stability. Following thrombectomy with good flow documented. Discussed with vascular we will watch 1 more day anticipate discharge in a.m. hemoglobin is stable. 03/21: Patient seen and examined, per vascular "The patient is doing well status post revascularization of his left lower extremity. He has a palpable dorsalis pedis pulse. There was thrombus within the left external iliac artery as well as the left common femoral artery during his initial procedure. He should be discharged on Plavix 75 mg p.o. daily and Eliquis 5 mg p.o. twice daily. He should follow-up with me in the office 2 weeks after discharge." Awaiting Placement History Interval history: Patient seen and examined, patient underwent successful thrombectomy with good flow, no new complaints. Hospitalist Physical - Physical exam Narrative exam: General appearance: Present: no acute distress, well-nourished - EENT Eyes: PERRL, EOM intact ENT: hearing intact, clear oral mucosa, other (Blind) Ears: bilateral: normal - Neck Neck: supple, normal ROM - Respiratory Respiratory effort: normal Respiratory: bilateral: CTA - Breasts Breasts: normal - Cardiovascular Rhythm: regular Heart Sounds: Present: S1 & S2. Absent: gallop, rub Extremities: pulses intact, No edema, normal color, Full ROM Dimished pulse on the left lower ext - Gastrointestinal General gastrointestinal: Present: soft, non-tender, non-distended, normal bowel sounds - Genitourinary Male genitourinary: normal - Integumentary Integumentary: See skin assessment - Musculoskeletal Musculoskeletal: strength equal bilaterally, other (Ischemic changes of left stephanie t forefoot.) Warmth noted, improved. - Neurologic Neurologic: moves all extremities, other (Neuropathy) - Psychiatric Psychiatric: memory intact, appropriate mood/affect, intact judgment & insight - Constitutional Vitals: Temp Pulse Resp BP Pulse Ox 98.3 F 68 18 143/84 100 03/22/21 04:23 03/22/21 04:23 03/22/21 04:23 03/22/21 09:38 03/22/21 04:23 General appearance: Present: no acute distress Results - Labs CBC & Chem 7: 08/06/21 05:08 03/21/21 14:52 Labs: Laboratory Last Values WBC 4.9 K/mm3 (4.5-11.0) 03/21/21 05:08 RBC 3.54 M/mm3 (3.65-5.03) L 03/21/21 05:08 Hgb 10.7 gm/dl (11.8-15.2) L 03/21/21 05:08 Hct 32.2 % (35.5-45.6) L 03/21/21 05:08 MCV 91 fl (84-94) 03/21/21 05:08 MCH 30 pg (28-32) 03/21/21 05:08 MCHC 33 % (32-34) 03/21/21 05:08 RDW 16.2 % (13.2-15.2) H 03/21/21 05:08 Plt Count 254 K/mm3 (140-440) 03/21/21 05:08 Lymph % (Auto) 44.4 % (13.4-35.0) H 03/14/21 11:11 [place] % (Auto) 14.6 % (0.0-7.3) H 03/14/21 11:11 Eos % (Auto) 2.9 % (0.0-4.3) 03/14/21 11:11 Baso % (Auto) 0.7 % (0.0-1.8) 03/14/21 11:11 Lymph # (Auto) 1.8 K/mm3 (1.2-5.4) 03/14/21 11:11 [place] # (Auto) 0.6 K/mm3 (0.0-0.8) 03/14/21 11:11 Eos # (Auto) 0.1 K/mm3 (0.0-0.4) 03/14/21 11:11 Baso # (Auto) 0.0 K/mm3 (0.0-0.1) 03/14/21 11:11 Add Manual Diff Complete 03/12/21 20:52 Seg Neutrophils % 37.4 % (40.0-70.0) L 03/14/21 11:11 Seg Neutrophils # 1.5 K/mm3 (1.8-7.7) L 03/14/21 11:11 ESR 9 mm/Hr (0-20) 03/12/21 20:52 PT 12.9 Sec. (12.2-14.9) 03/21/21 14:52 INR 0.92 (0.87-1.13) 03/21/21 14:52 APTT 42.9 Sec. (24.2-36.6) H 03/21/21 14:52 Heparin Anti-Xa Level 0.52 U.I./ml (0.3-0.7) 03/21/21 05:08 Sodium 138 mmol/L (137-145) 03/19/21 05:17 Potassium 4.0 mmol/L (3.6-5.0) D 03/19/21 18:59 Chloride 102.2 mmol/L (98-107) 03/19/21 05:17 Carbon Dioxide 25 mmol/L (22-30) 03/19/21 05:17 Anion Gap 14 mmol/L 03/19/21 05:17 BUN 9 mg/dL (9-20) 03/19/21 05:17 Creatinine 0.7 mg/dL (0.8-1.3) L 03/21/21 14:52 Estimated GFR > 60 ml/min 03/21/21 14:52 BUN/Creatinine Ratio 11 % 03/19/21 05:17 Glucose 85 mg/dL (75-100) 03/19/21 05:17 POC Glucose 83 mg/dL (70-105) 03/22/21 08:02 Calcium 8.5 mg/dL (8.4-10.2) 03/19/21 05:17 Total Bilirubin 0.20 mg/dL (0.1-1.2) 03/12/21 20:52 AST 16 units/L (5-40) 03/12/21 20:52 ALT 13 units/L (7-56) 03/12/21 20:52 Alkaline Phosphatase 49 units/L (35-129) 03/12/21 20:52 C-Reactive Protein 3.80 mg/dL (0.00-1.30) H 03/12/21 20:52 Total Protein 7.1 g/dL (6.3-8.2) 03/12/21 20:52 Albumin 4.1 g/dL (3.9-5) 03/12/21 20:52 Albumin/Globulin Ratio 1.4 % 03/12/21 20:52 Coronavirus (PCR) Negative (Negative) 03/15/21 Unknown Dias/IV: Voiding Method Urinal Active Medications - Current Medications Current Medications: Generic Name Dose Route Start Last Admin Trade Name Freq PRN Reason Stop Dose Admin Acetaminophen 650 mg 03/13/21 18:07 Acetaminophen 325 Mg Tab PO Q4H PRN Pain MILD(1-3)/Fever >100.5/HSU Hydrocodone Bitart/Acetaminophen 1 each 03/14/21 18:20 03/21/21 22:48 Hydrocodone/Acetaminophen 5-325 Mg Tab PO 1 each Q4H PRN Administration Pain, Moderate (4-6) Apixaban 5 mg 03/21/21 15:00 03/22/21 09:32 Apixaban 5 Mg Tab PO 5 mg Q12HR MEG Administration Protocol Clopidogrel Bisulfate 75 mg 03/18/21 10:00 03/22/21 09:34 Clopidogrel 75 Mg Tab PO 75 mg QDAY MEG Administration Diltiazem HCl 180 mg 03/13/21 19:00 03/22/21 09:38 Diltiazem Cd 180 Mg Cap PO 180 mg DAILY MEG Administration Fluoxetine HCl 40 mg 03/14/21 10:00 03/22/21 09:34 Fluoxetine 20 Mg Cap PO 40 mg QDAY MEG Administration Dextrose 1,000 mls @ 35 mls/hr 03/19/21 15:00 03/21/21 13:04 D5w IV 35 mls/hr DIRECT MEG Administration Morphine Sulfate 2 mg 03/13/21 18:07 Morphine 2 Mg/1 Ml Inj IV Q4H PRN Pain, Moderate (4-6) Naloxone HCl 0.1 mg 03/13/21 18:07 Naloxone 0.4 Mg/1 Ml Inj IV Q2MIN PRN Res Rate </= 8 or 02 SAT < 92% Ondansetron HCl 4 mg 03/13/21 18:07 Ondansetron 4 Mg/2 Ml Inj IV Q8H PRN Nausea And Vomiting Pantoprazole Sodium 40 mg 03/17/21 13:00 03/22/21 09:33 Pantoprazole 40 Mg Tab PO 40 mg QDAC MEG Administration Phenobarbital 64.8 mg 03/13/21 22:00 03/22/21 09:32 Phenobarbital 32.4 Mg Tab PO 64.8 mg BID MEG Administration Sodium Chloride 10 ml 03/13/21 22:00 03/22/21 09:39 Sodium Chloride 0.9% 10 Ml Flush Syringe IV 10 ml BID MEG Administration Sodium Chloride 10 ml 03/13/21 18:07 Sodium Chloride 0.9% 10 Ml Flush Syringe IV PRN PRN LINE FLUSH Nutrition/Malnutrition Assess - Dietary Evaluation Nutrition/Malnutrition Findings: Nutrition Notes Start: 03/20/21 12:17 Freq: Status: Active Protocol: Document 03/20/21 12:17 CHRISTIAN (Rec: 03/20/21 12:18 [id number]) Nutrition Notes Need for Assessment generated from: LOS Initial or Follow up Brief Note Subjective/Other Information Screen for LOS. Pt confused. Per chart, pt eating 100% of meals. Nutrition Intervention Revisit per MD consult or patient Sign Off request:
[2021-03-23] MEDS: PHENobarbital 32.4 MG TAB PO SCH ×2 (10:57→22:14)
[2021-03-23] MEDS: FLUoxetine 20 MG CAP PO SCH (10:57)
[2021-03-23] MEDS: CLOPIDOGREL 75 MG TAB PO SCH (10:58)
[2021-03-23] MEDS: dilTIAZem CD 180 MG CAP PO SCH (10:58)
[2021-03-23] MEDS: APIXABAN 5 MG TAB PO SCH ×2 (10:58→22:14)
[2021-03-23] MEDS: PANTOPRAZOLE 40 MG TAB PO SCH (10:58)
--- NOTE | 2021-03-23 11:07 | Progress Note ---
Assessment and Plan Assessment and plan: (1) Hypertension Current Visit: Yes Status: Acute Plan to address problem: We will resume diltiazem. Patient has fair control blood pressure. (2) Arterial thrombosis Current Visit: Yes Status: Acute Plan to address problem: Stable and improved flow after revascularization procedure. Patient continues to have ischemic changes left forefoot above Lisfranc's joint may require additional amputation. Can follow-up outpatient.. [facility] (3) Left foot pain Current Visit: Yes Status: Acute Plan to address problem: Secondary to arterial thrombus. 03/16: Patient doing well. Denies significant pain. Status post revascularization procedure yesterday left leg. Flow has improved significantly. Social issues about care in the personal half-way. Family would like patient [facility]. Case management aware. Patient was seen and evaluated by vascular surgery no further recommendation. Patient will follow with them outpatient. 03/17: Patient seen and examined also discussed with the vascular surgeon we will order arterial and venous Doppler of the left leg. Per vascular patient does have" gangrenous changes extending to all 5 phalanges. Will likely require some level of amputation. Patient's family and case management and social work arranging placement following discharge. Groin site clean margins. No hematoma noted. Patient is moving right leg and left leg some 03/18: Imaging studies reviewed some concern about dissection versus thrombus. Discussed with vascular they are going to be proceeding with a thrombectomy tomorrow. I also discussed with the patient and also discussed with the patient's sister. There was some confusion based on what the sister was told yesterday that the patient has HIV actually whoever gave the information was wrong the patient does not have HIV the history and physical specifically states that the patient denies having HIV. At this time Eliquis has been discontinued patient is back on heparin for this possible thrombectomy. Echocardiogram is pending cardiology input is noted. 03/19: Patient seen and examined, awaiting thrombectomy Per Vascular "considering Patient had a CTA of the chest/abdomen/pelvis that demonstrated his left common iliac artery stent graft is patent however there is what appears to be a dissection just distal to the stent graft. In addition to the dissection the pa amy has a new embolus in the external iliac artery with diminished flow in the common femoral artery. He previously had a palpable femoral pulse after the case. He will require percutaneous intervention, from a left wrist approach to perform percutaneous mechanical thrombectomy and any additional necessary procedures to restore adequate arterial flow to the left lower extremity. I discussed this with the patient who has expressed understanding and agrees with the plan." 03/20: Patient shows clinical stability. Following thrombectomy with good flow documented. Discussed with vascular we will watch 1 more day anticipate discharge in a.m. hemoglobin is stable. 03/21: Patient seen and examined, per vascular "The patient is doing well status post revascularization of his left lower extremity. He has a palpable dorsalis pedis pulse. There was thrombus within the left external iliac artery as well as the left common femoral artery during his initial procedure. He should be discharged on Plavix 75 mg p.o. daily and Eliquis 5 mg p.o. twice daily. He should follow-up with me in the office 2 weeks after discharge." Awaiting Placement 03/22: Awaiting placement 03/23: Patient remains clinically stable. Awaiting placement History Interval history: Patient seen and examined, patient underwent successful thrombectomy with good flow, no new complaints. Resting comfortably Hospitalist Physical - Physical exam Narrative exam: General appearance: Present: no acute distress, well-nourished - EENT Eyes: PERRL, EOM intact ENT: hearing intact, clear oral mucosa, other (Blind) Ears: bilateral: normal - Neck Neck: supple, normal ROM - Respiratory Respiratory effort: normal Respiratory: bilateral: CTA - Breasts Breasts: normal - Cardiovascular Rhythm: regular Heart Sounds: Present: S1 & S2. Absent: gallop, rub Extremities: pulses intact, No edema, normal color, Full ROM Dimished pulse on the left lower ext - Gastrointestinal General gastrointestinal: Present: soft, non-tender, non-distended, normal bowel sounds - Genitourinary Male genitourinary: normal - Integumentary Integumentary: See skin assessment - Musculoskeletal Musculoskeletal: strength equal bilaterally, other (Ischemic changes of left foot forefoot.) Warmth noted, improved. - Neurologic Neurologic: moves all extremities, other (Neuropathy) - Psychiatric Psychiatric: memory intact, appropriate mood/affect, intact judgment & insight - Constitutional Vitals: Temp Pulse Resp BP Pulse Ox 98.3 F 76 18 107/64 97 03/23/21 04:40 03/23/21 04:40 03/23/21 04:40 03/23/21 04:40 03/23/21 08:05 General appearance: Present: no acute distress Results - Labs CBC & Chem 7: 03/21/21 05:08 03/21/21 14:52 Labs: Laboratory Last Values WBC 4.9 K/mm3 (4.5-11.0) 03/21/21 05:08 RBC 3.54 M/mm3 (3.65-5.03) L 03/21/21 05:08 Hgb 10.7 gm/dl (11.8-15.2) L 03/21/21 05:08 Hct 32.2 % (35.5-45.6) L 03/21/21 05:08 MCV 91 fl (84-94) 03/21/21 05:08 MCH 30 pg (28-32) 03/21/21 05:08 MCHC 33 % (32-34) 03/21/21 05:08 RDW 16.2 % (13.2-15.2) H 03/21/21 05:08 Plt Count 254 K/mm3 (140-440) 03/21/21 05:08 Lymph % (Auto) 44.4 % (13.4-35.0) H 03/14/21 11:11 [place] % (Auto) 14.6 % (0.0-7.3) H 03/14/21 11:11 Eos % (Auto) 2.9 % (0.0-4.3) 03/14/21 11:11 Baso % (Auto) 0.7 % (0.0-1.8) 03/14/21 11:11 Lymph # (Auto) 1.8 K/mm3 (1.2-5.4) 03/14/21 11:11 [place] # (Auto) 0.6 K/mm3 (0.0-0.8) 03/14/21 11:11 Eos # (Auto) 0.1 K/mm3 (0.0-0.4) 03/14/21 11:11 Baso # (Auto) 0.0 K/mm3 (0.0-0.1) 03/14/21 11:11 Add Manual Diff Complete 03/12/21 20:52 Seg Neutrophils % 37.4 % (40.0-70.0) L 03/14/21 11:11 Seg Neutrophils # 1.5 K/mm3 (1.8-7.7) L 03/14/21 11:11 ESR 9 mm/Hr (0-20) 03/12/21 20:52 PT 12.9 Sec. (12.2-14.9) 03/21/21 14:52 INR 0.92 (0.87-1.13) 03/21/21 14:52 APTT 42.9 Sec. (24.2-36.6) H 03/21/21 14:52 Heparin Anti-Xa Level 0.52 U.I./ml (0.3-0.7) 03/21/21 05:08 Sodium 138 mmol/L (137-145) 03/19/21 05:17 Potassium 4.0 mmol/L (3.6-5.0) D 03/19/21 18:59 Chloride 102.2 mmol/L (98-107) 03/19/21 05:17 Carbon Dioxide 25 mmol/L (22-30) 03/19/21 05:17 Anion Gap 14 mmol/L 03/19/21 05:17 BUN 9 mg/dL (9-20) 03/19/21 05:17 Creatinine 0.7 mg/dL (0.8-1.3) L 03/21/21 14:52 Estimated GFR > 60 ml/min 03/21/21 14:52 BUN/Creatinine Ratio 11 % 03/19/21 05:17 Glucose 85 mg/dL (75-100) 03/19/21 05:17 POC Glucose 79 mg/dL (70-105) 03/23/21 08:36 Calcium 8.5 mg/dL (8.4-10.2) 03/19/21 05:17 Total Bilirubin 0.20 mg/dL (0.1-1.2) 03/12/21 20:52 AST 16 units/L (5-40) 03/12/21 20:52 ALT 13 units/L (7-56) 03/12/21 20:52 Alkaline Phosphatase 49 units/L (35-129) 03/12/21 20:52 C-Reactive Protein 3.80 mg/dL (0.00-1.30) H 03/12/21 20:52 Total Protein 7.1 g/dL (6.3-8.2) 03/12/21 20:52 Albumin 4.1 g/dL (3.9-5) 03/12/21 20:52 Albumin/Globulin Ratio 1.4 % 03/12/21 20:52 Coronavirus (PCR) Negative (Negative) 03/15/21 Unknown Dias/IV: Voiding Method Urinal Active Medications - Current Medications Current Medications: Generic Name Dose Route Start Last Admin Trade Name Freq PRN Reason Stop Dose Admin Acetaminophen 650 mg 03/13/21 18:07 Acetaminophen 325 Mg Tab PO Q4H PRN Pain MILD(1-3)/Fever >100.5/HSU Hydrocodone Bitart/Acetaminophen 1 each 03/14/21 18:20 03/21/21 22:48 Hydrocodone/Acetaminophen 5-325 Mg Tab PO 1 each Q4H PRN Administration Pain, Moderate (4-6) Apixaban 5 mg 03/21/21 15:00 03/23/21 10:58 Apixaban 5 Mg Tab PO 5 mg Q12HR MEG Administration Protocol Clopidogrel Bisulfate 75 mg 03/18/21 10:00 03/23/21 10:58 Clopidogrel 75 Mg Tab PO 75 mg QDAY MEG Administration Diltiazem HCl 180 mg 03/13/21 19:00 03/23/21 10:58 Diltiazem Cd 180 Mg Cap PO 180 mg DAILY MEG Administration Fluoxetine HCl 40 mg 03/14/21 10:00 03/23/21 10:57 Fluoxetine 20 Mg Cap PO 40 mg QDAY MEG Administration Dextrose 1,000 mls @ 35 mls/hr 03/19/21 15:00 03/21/21 13:04 D5w IV 35 mls/hr DIRECT MEG Administration Morphine Sulfate 2 mg 03/13/21 18:07 Morphine 2 Mg/1 Ml Inj IV Q4H PRN Pain, Moderate (4-6) Naloxone HCl 0.1 mg 03/13/21 18:07 Naloxone 0.4 Mg/1 Ml Inj IV Q2MIN PRN Res Rate </= 8 or 02 SAT < 92% Ondansetron HCl 4 mg 03/13/21 18:07 Ondansetron 4 Mg/2 Ml Inj IV Q8H PRN Nausea And Vomiting Pantoprazole Sodium 40 mg 03/17/21 13:00 03/23/21 10:58 Pantoprazole 40 Mg Tab PO 40 mg QDAC MEG Administration Phenobarbital 64.8 mg 03/13/21 22:00 08/08/21 10:57 Phenobarbital 32.4 Mg Tab PO 64.8 mg BID MEG Administration Sodium Chloride 10 ml 03/13/21 22:00 03/23/21 10:58 Sodium Chloride 0.9% 10 Ml Flush Syringe IV 10 ml BID MEG Administration Sodium Chloride 10 ml 03/13/21 18:07 Sodium Chloride 0.9% 10 Ml Flush Syringe IV PRN PRN LINE FLUSH Nutrition/Malnutrition Assess - Dietary Evaluation Nutrition/Malnutrition Findings: Nutrition Notes Start: 03/20/21 12:17 Freq: Status: Active Protocol: Document 03/20/21 12:17 CHRISTIAN (Rec: 03/20/21 12:18 [id number]) Nutrition Notes Need for Assessment generated from: LOS Initial or Follow up Brief Note Subjective/Other Information Screen for LOS. Pt confused. Per chart, pt eating 100% of meals. Nutrition Intervention Revisit per MD consult or patient Sign Off request:
[2021-03-23 14:13] LABS: Hematocrit 31.6 % (35.5-45.6); Hemoglobin 10.5 gm/dl (11.8-15.2); Mean Corpuscular HGB Conc 33 % (32-34); Mean Corpuscular Volume 93 fl (84-94); Platelet Count 312 K/mm3 (140-440); Red Blood Count 3.38 M/mm3 (3.65-5.03); Red Cell Distribution Width 16.6 % (13.2-15.2)
[2021-03-24] MEDS: PANTOPRAZOLE 40 MG TAB PO SCH (10:49)
[2021-03-24] MEDS: CLOPIDOGREL 75 MG TAB PO SCH (10:49)
[2021-03-24] MEDS: PHENobarbital 32.4 MG TAB PO SCH ×2 (10:49→23:30)
[2021-03-24] MEDS: APIXABAN 5 MG TAB PO SCH ×2 (10:50→23:30)
[2021-03-24] MEDS: FLUoxetine 20 MG CAP PO SCH (10:50)
[2021-03-24] MEDS: dilTIAZem CD 180 MG CAP PO SCH (10:59)
--- NOTE | 2021-03-24 12:24 | Discharge Summary ---
Providers - Providers Date of Admission: 03/13/21 16:15 Attending physician: ALLISON FLOREZ MD 03/17/21 12:28 Consult to Physician [CONS] Routine Comment: Consulting Provider: CIERA ZAVALA Physician Instructions: Reason For Exam: Artherial thrombus Left common illiac artery 03/21/21 14:08 Occupational Therapy Evaluate and Treat [CONS] Routine Comment: Reason For Exam: debility Physical Therapy Evaluation and Treat [CONS] Routine Comment: Reason For Exam: debilty Primary care physician: CARE TEAM ASSISTANT Hospitalization Reason for admission: CRITICAL LIMB ISCHEMIA Condition: Stable Hospital course: (1) Hypertension Current Visit: Yes Status: Acute Plan to address problem: We will resume diltiazem. Patient has fair control blood pressure. 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 Patient continues to have ischemic changes left forefoot above Lisfranc's joint may require additional amputation. Can follow-up outpatient.. Now awaiting [facility] facility (3) Left foot pain Current Visit: Yes Status: Acute Plan to address problem: Secondary to arterial thrombus. 8: Patient doing well. Denies significant pain. Status post revascularization procedure yesterday left leg. Flow has improved significantly. Social issues about care in the personal residential. Family would like patient placed in [facility] facility. Case management aware. Patient was seen and evaluated by vascular surgery no further recommendation. Patient will follow with them outpatient. 03/17: Patient seen and examined also discussed with the vascular surgeon we will order arterial and venous Doppler of the left leg. Per vascular patient does have" gangrenous changes extending to all 5 phalanges. Will likely require some level of amputation. Patient's family and case management and social work arranging placement following discharge. Groin site clean margins. No hematoma noted. Patient is moving right leg and left leg some 03/18: Imaging studies reviewed some concern about dissection versus thrombus. Discussed with vascular they are going to be proceeding with a thrombectomy tomorrow. I also discussed with the patient and also discussed with the patient's sister. There was some confusion based on what the sister was told yesterday that the patient has HIV actually whoever gave the information was wrong the patient does not have HIV the history and physical specifically states that the patient denies having HIV. At this time Chaunceyis has been discontinued patient is back on heparin for this possible thrombectomy. Echocardiogram is pending cardiology input is noted. 03/19: Patient seen and examined, awaiting thrombectomy Per Vascular "considering Patient had a CTA of the chest/abdomen/pelvis that demonstrated his left common iliac artery stent graft is patent however there is what appears to be a dissection just distal to the stent graft. In addition to the dissection the patient has a new embolus in the external iliac artery with diminished flow in the common femoral artery. He previously had a palpable femoral pulse after the case. He will require percutaneous intervention, from a left wrist approach to perform percutaneous mechanical thrombectomy and any additional necessary procedures to restore adequate arterial flow to the left lower extremity. I discussed this with the patient who has expressed understanding and agrees with the plan." 03/20: Patient shows clinical stability. Following thrombectomy with good flow documented. Discussed with vascular we will watch 1 more day anticipate discharge in a.m. hemoglobin is stable. 03/21: Patient seen and examined, per vascular "The patient is doing well status post revascularization of his left lower extremity. He has a palpable dorsalis pedis pulse. There was thrombus within the left external iliac artery as well as the left common femoral artery during his initial procedure. He should be discharged on Plavix 75 mg p.o. daily and Eliquis 5 mg p.o. twice daily. He should follow-up with me in the office 2 weeks after discharge." Awaiting Placement 03/22: Awaiting placement 03/23: Patient remains clinically stable. Awaiting placement 03/24: Patient continues to demonstrate good perfusion in the foot, evidenced by warmth and palpable PD. Evaluated by myself and the nurse. He continues on Eliquis and is awaiting placement. Disposition: [id number]/[place]-[facility] Final Discharge Diagnosis (Prints w/discharge instructions): CRITICAL LIMB ISCHEMIA- LEFT iliac artery occlusion Time spent for discharge: 35 MINS Core Measure Documentation - Palliative Care Palliative Care/ Comfort Measures: Not Applicable - Core Measures Any of the following diagnoses?: none Exam - Physical Exam Narrative exam: General appearance: Present: no acute distress, well-nourished - EENT Eyes: PERRL, EOM intact ENT: hearing intact, clear oral mucosa, other (Blind) Ears: bilateral: normal - Neck Neck: supple, normal ROM - Respiratory Respiratory effort: normal Respiratory: bilateral: CTA - Breasts Breasts: normal - Cardiovascular Rhythm: regular Heart Sounds: Present: S1 & S2. Absent: gallop, rub Extremities: pulses intact, No edema, normal color, Full ROM Dimished pulse on the left lower ext - Gastrointestinal General gastrointestinal: Present: soft, non-tender, non-distended, normal bowel sounds - Genitourinary Male genitourinary: normal - Integumentary Integumentary: See skin assessment - Musculoskeletal Musculoskeletal: strength equal bilaterally, other (Ischemic changes of left foot forefoot.) Warmth noted, improved. - Neurologic Neurologic: moves all extremities, other (Neuropathy) - Psychiatric Psychiatric: memory intact, appropriate mood/affect, intact judgment & insight - Constitutional Vitals: Temp Pulse Resp BP Pulse Ox 98.7 F 81 18 99/58 100 03/24/21 10:54 03/24/21 10:59 03/24/21 10:54 03/24/21 10:59 03/24/21 10:54 Plan Activity: advance as tolerated, fall precautions Diet: low fat Special Instructions: record daily weights, record daily BP diary Follow up with: PRIMARY CARE, [Primary Care Provider] - 3-5 Days OLGA LIDIA MARQUIS MD [Staff Physician] - 14 Days Prescriptions: Apixaban [Eliquis] 5 mg PO BID #60 tablet Apixaban [Eliquis] 5 mg PO Q12HR #60 tablet HYDROcodone/APAP 5-325 [[place] 5-325 mg TAB] 1 each PO Q4H PRN #14 tablet PRN Reason: Pain, Moderate (4-6) Clopidogrel [Plavix] 75 mg PO QDAY #30 tablet Pantoprazole [Protonix TAB] 40 mg PO QDAC #30 tablet
[2021-03-24 22:37] VITALS: BP 99/68
[2021-03-25 03:59] LABS: Hematocrit 29.7 % (35.5-45.6); Hemoglobin 10.1 gm/dl (11.8-15.2); Mean Corpuscular HGB Conc 34 % (32-34); Mean Corpuscular Volume 93 fl (84-94); Platelet Count 334 K/mm3 (140-440); Red Blood Count 3.21 M/mm3 (3.65-5.03); Red Cell Distribution Width 16.5 % (13.2-15.2)
== END 2021-03-25 04:25 | disposition home health service (06) | DRG 277 ==
LOC: ED 16:43 → 3A 03-13 05:49 → OBSVTOIN 03-13 16:15 → 3A 03-13 20:51
PROVIDERS: ADMIT Hospitalist; ATTEND Internal Medicine
PROC: B41D1ZZ Fluoroscopy of Aorta and Bilateral Lower Extremity Arteries using Low Osmolar Contrast (ICD-10-PCS; principal; 2021-03-14)
PROC: 047F3ZZ Dilation of Left Internal Iliac Artery, Percutaneous Approach (ICD-10-PCS; 2021-03-14)
PROC: 047J3Z1 Dilation of Left External Iliac Artery using Drug-Coated Balloon, Percutaneous Approach (ICD-10-PCS; 2021-03-14)
PROC: 047D34Z Dilation of Left Common Iliac Artery with Drug-eluting Intraluminal Device, Percutaneous Approach (ICD-10-PCS; 2021-03-14)
PROC: 047C34Z Dilation of Right Common Iliac Artery with Drug-eluting Intraluminal Device, Percutaneous Approach (ICD-10-PCS; 2021-03-14)
PROC: 047H3ZZ Dilation of Right External Iliac Artery, Percutaneous Approach (ICD-10-PCS; 2021-03-19)
PROC: 047H3Z1 Dilation of Right External Iliac Artery using Drug-Coated Balloon, Percutaneous Approach (ICD-10-PCS; 2021-03-19)
PROC: B41D1ZZ Fluoroscopy of Aorta and Bilateral Lower Extremity Arteries using Low Osmolar Contrast (ICD-10-PCS; 2021-03-19)
PROC: 04CJ3ZZ Extirpation of Matter from Left External Iliac Artery, Percutaneous Approach (ICD-10-PCS; 2021-03-19)
DX: I74.3 Embolism and thrombosis of arteries of the lower extremities (principal); N17.0 Acute kidney failure with tubular necrosis; I96 Gangrene, not elsewhere classified; G82.20 Paraplegia, unspecified; I10 Essential (primary) hypertension; Z20.822 Contact with and (suspected) exposure to COVID-19; M24.59 Contracture, other specified joint; F32.9 Major depressive disorder, single episode, unspecified; H54.7 Unspecified visual loss; Z79.899 Other long term (current) drug therapy; Z79.891 Long term (current) use of opiate analgesic; Z79.01 Long term (current) use of anticoagulants; Z99.3 Dependence on wheelchair
CPT/HCPCS: 36415; 37184; 37221; 71275; 74174; 75625; 75710; 76937; 80048; 80053; 82565; 82962; 84132; 85014; 85018; 85025; 85027; 85049; 85520; 85610; 85652; 85730; 86140; 87116; 93005; 93306; 99291; 99406; G0378; C1725; C1760; C1769; C1874; C1887; C1894; C2623; J1644; J2250; J3010; J3480; J7030; J7040; J7070; Q9967; U0003

== ENCOUNTER 2022-02-17 15:59 | Emergency (ER) | payer MEDICAID ==
--- NOTE | 2022-02-17 23:51 | Emergency Department Report ---
ED Lower Extremity HPI - General Chief Complaint: Extremity Injury, Lower Stated Complaint: RIGHT LEG PAIN Time Seen by Provider: 02/17/22 23:27 Source: patient Mode of arrival: Ambulatory Limitations: No Limitations - History of Present Illness Initial Comments: Patient 46-year-old male history of traumatic brain injury blind, hypertension, history of seizures. Patient presents for right dorsal foot pain. There is no swelling no deformity is been no fall injury or trauma. Patient states he presents because foot is aching. Patient does not have pain medication prescribed by PCP at this time. Pain is described as aching sharp 7/10. Pain is exacerbated by attempted weightbearing. Pain is relieved by nothing tried. There is no pain on dorsiflexion. No calf tenderness no unilateral leg swelling. There is been no suspicious travel. No concern for PE. Patient states primary complaint is pain and aching. There is no paralysis numbness or tingling. MD Complaint: foot injury - Related Data Home Medications Medication Instructions Recorded Confirmed Last Taken FLUoxetine HCL [PROzac] 40 mg PO QDAY 03/13/21 03/13/21 Unknown Fenofibrate 160 mg PO DAILY 03/13/21 03/13/21 Unknown Oxybutynin Chloride [Ditropan Xl] 5 mg PO DAILY 03/13/21 03/13/21 Unknown PHENobarbitaL [Phenobarbital] 64.8 mg PO BID 03/13/21 03/13/21 Unknown dilTIAZem HCl [Diltiazem 24Hr ER 1 cap PO DAILY 03/13/21 03/13/21 Unknown (Cd)] Previous Rx's Medication Instructions Recorded Last Taken Type Acetaminophen [Acetaminophen TAB] 650 mg PO Q4H PRN tablet 03/14/21 Unknown Rx FLUoxetine [PROzac] 40 mg PO QDAY capsule 03/14/21 Unknown Rx PHENobarbitaL [PHENobarbital] 64.8 mg PO BID tablet 03/14/21 Unknown Rx Apixaban [Eliquis] 5 mg PO BID #60 tablet 03/21/21 Unknown Rx Apixaban [Eliquis] 5 mg PO Q12HR #60 tablet 03/21/21 Unknown Rx Clopidogrel [Plavix] 75 mg PO QDAY #30 tablet 03/21/21 Unknown Rx HYDROcodone/APAP 5-325 [[place] 1 each PO Q4H PRN #14 tablet 03/21/21 Unknown Rx 5-325 mg TAB] Pantoprazole [Protonix TAB] 40 mg PO QDAC #30 tablet 03/21/21 Unknown Rx Acetaminophen [Acetaminophen TAB] 1,000 mg PO Q6HR PRN #30 tablet 02/17/22 Unknown Rx Allergies Allergy/AdvReac Type Severity Reaction Status Date / Time No Known Allergies Allergy Verified 03/13/21 10:57 ED Review of Systems ROS: Stated complaint: RIGHT LEG PAIN Other details as noted in HPI Constitutional: denies: chills, fever Eyes: denies: eye pain, eye discharge, vision change ENT: denies: ear pain, throat pain Respiratory: denies: cough, shortness of breath, wheezing Cardiovascular: denies: chest pain, palpitations Endocrine: no symptoms reported Gastrointestinal: denies: abdominal pain, nausea, diarrhea Genitourinary: denies: urgency, dysuria Musculoskeletal: other (Right foot pain) Skin: denies: rash, lesions Neurological: denies: headache, weakness, paresthesias Psychiatric: denies: anxiety, depression Hematological/Lymphatic: denies: easy bleeding, easy bruising ED Past Medical Hx - Past Medical History Hx Hypertension: Yes Hx Seizures: Yes Additional medical history: Blindness, decreased mobility and wheelchair use, - Surgical History Additional Surgical History: HEAD. Patient is blind, vascular stent in lower extremity - Social History Smoking Status: Current Every Day Smoker - Medications Home Medications: Home Medications Medication Instructions Recorded Confirmed Last Taken Type FLUoxetine HCL [PROzac] 40 mg PO QDAY 03/13/21 03/13/21 Unknown History Fenofibrate 160 mg PO DAILY 03/13/21 03/13/21 Unknown History Oxybutynin Chloride [Ditropan Xl] 5 mg PO DAILY 03/13/21 03/13/21 Unknown History PHENobarbitaL [Phenobarbital] 64.8 mg PO BID 03/13/21 03/13/21 Unknown History dilTIAZem HCl [Diltiazem 24Hr ER 1 cap PO DAILY 03/13/21 03/13/21 Unknown History (Cd)] Acetaminophen [Acetaminophen TAB] 650 mg PO Q4H PRN tablet 03/14/21 Unknown Rx FLUoxetine [PROzac] 40 mg PO QDAY capsule 03/14/21 Unknown Rx PHENobarbitaL [PHENobarbital] 64.8 mg PO BID tablet 03/14/21 Unknown Rx Apixaban [Eliquis] 5 mg PO BID #60 tablet 03/21/21 Unknown Rx Apixaban [Eliquis] 5 mg PO Q12HR #60 tablet 03/21/21 Unknown Rx Clopidogrel [Plavix] 75 mg PO QDAY #30 tablet 03/21/21 Unknown Rx HYDROcodone/APAP 5-325 [[place] 1 each PO Q4H PRN #14 tablet 03/21/21 Unknown Rx 5-325 mg TAB] Pantoprazole [Protonix TAB] 40 mg PO QDAC #30 tablet 03/21/21 Unknown Rx Acetaminophen [Acetaminophen TAB] 1,000 mg PO Q6HR PRN #30 tablet 02/17/22 Unknown Rx ED Physical Exam - General Limitations: No Limitations General appearance: alert, in no apparent distress - Head Head exam: Present: atraumatic, normocephalic - Eye Eye exam: Present: EOMI - ENT ENT exam: Present: mucous membranes moist - Neck Neck exam: Present: normal inspection, full ROM. Absent: tenderness, lymphadenopathy - Respiratory Respiratory exam: Present: normal lung sounds bilaterally. Absent: respiratory distress, wheezes, stridor, chest wall tenderness - Cardiovascular Cardiovascular Exam: Present: regular rate, normal rhythm, normal heart sounds. Absent: systolic murmur, diastolic murmur, rubs, gallop - GI/Abdominal GI/Abdominal exam: Present: soft, normal bowel sounds. Absent: distended, tenderness - Rectal Rectal exam: Present: deferred - Extremities Exam Extremities exam: Present: full ROM, normal capillary refill. Absent: pedal edema - Expanded Lower Extremity Exam Right Foot/Toe exam: Absent: tenderness, swelling, abrasion, laceration, ecchymosis, deformity, crepidus, erythema, calcaneal tenderness, tenderness at base of 5th metatarsal, nail avulsion, subungual hematoma Neuro vascular tendon exam: Absent: pulse deficit, motor deficit, sensory deficit, tendon deficit, foot drop Gait: Positive: not tested/not observed (Patient is wheelchair-bound) - Back Exam Back exam: Present: normal inspection, full ROM. Absent: paraspinal tenderness, vertebral tenderness - Neurological Exam Neurological exam: Present: alert, oriented X3, CN II-XII intact - Expanded Neurological Exam Expanded Patient oriented to: Present: person, place, time Speech: Present: fluid speech ED Course Vital Signs 02/17/22 16:42 Temperature 98.9 F Pulse Rate 93 H Respiratory 17 Rate Blood Pressure 139/75 [Right] O2 Sat by Pulse 100 Oximetry ED Lower Extremity MDM - Radiology Data Radiology results: image reviewed Duplex Doppler right is normal no evidence of DVT. - Medical Decision Making Pain is improved. Duplex Doppler right is normal no evidence of DVT. There is no abrasions ecchymosis no swelling or deformity. Plan NSAIDs as needed pain, follow-up with primary care doctor in 2 to 3 days. Return to emergency department should symptoms worsen. Patient verbalized agreement understanding of discharge plan. Patient DC'd to home via POV and family member at this time. Critical care attestation.: If time is entered above; I have spent that time in minutes in the direct care of this critically ill patient, excluding procedure time. ED Disposition Clinical Impression: Lower extremity pain, right Disposition: 01 HOME / SELF CARE / HOMELESS Is pt being admited?: No Does the pt Need Aspirin: No Condition: Stable Instructions: Musculoskeletal Pain Additional Instructions: Take medications as prescribed for pain. Follow-up with your doctor in 2 to 3 days. Return to emergency department should symptoms worsen. Prescriptions: Acetaminophen [Acetaminophen TAB] 1,000 mg PO Q6HR PRN #30 tablet PRN Reason: pain Referrals: BARBARA GUTIÉRREZ MD [Staff Physician] - 3-5 Days Forms: Work/School Release Form(ED)
[2022-02-18 00:12] VITALS: BP 156/69
--- NOTE | 2022-02-18 06:41 | Vascular Lab Report ---
DUPLEX DOPPLER LOWER EXTREMITY VEINS, RIGHT INDICATION / CLINICAL INFORMATION: pain, numbness and tingling.. TECHNIQUE: Duplex doppler imaging was performed through the veins of the right lower extremity using venous compression and other maneuvers. COMPARISON: None available. FINDINGS: RIGHT COMMON FEMORAL VEIN: Negative. RIGHT FEMORAL VEIN: Negative. RIGHT POPLITEAL VEIN: Negative. RIGHT CALF VEINS: Negative. ADDITIONAL FINDINGS: None. IMPRESSION: 1. No sonographic evidence for DVT in the right lower extremity. Signer Name: Derick Cui MD Signed: 02/18/2022 6:37 AM Workstation Name: [id number]
== END 2022-02-18 01:29 | disposition home or self-care (01) ==
LOC: ED 15:59
DX: M79.671 Pain in right foot (principal); I10 Essential (primary) hypertension; R56.9 Unspecified convulsions; Z98.890 Other specified postprocedural states; F17.290 Nicotine dependence, other tobacco product, uncomplicated
CPT/HCPCS: 99283